=== PATIENT | male | born 1935 | race Caucasian/White ===

== ENCOUNTER 2017-05-23 10:13 | Outpatient (CLI) | payer MEDICARE ==
--- NOTE | 2017-05-23 10:59 | CT ---
NONCONTRAST CT OF THE CERVICAL SPINE: Indication: History of cervical spinal fracture. Comparison: 04-06-17 FINDINGS: The C2 vertebral body fracture is unchanged in appearance when compared to the prior exam. Advanced disc degenerative disease at C3-4 and C4-5 is similar. Diffuse osteopenia is similar. No additional acute fracture or subluxation is evident. Pleural parenchymal scarring involving both lung apices is similar. IMPRESSION: 1. No appreciable change seen involving the inferior endplate fracture of the C2 body when compared to the prior dated 04-06-17. 2. Severe spondylosis and diffuse osteopenia of the cervical spine is similar appearing. Calcificati ons involving the anterior soft tissues of the upper cervical spine is similar appearing. 3. Stable pleural parenchymal scarring involving both lung apices. POS: [facility]
== END 2017-05-23 10:14 | disposition home or self-care (01) ==
LOC: TBSIIMAG 10:13
PROVIDERS: ATTEND Neurological Surgery
DX: S12.9XXA Fracture of neck, unspecified, initial encounter (principal); M47.812 Spondylosis without myelopathy or radiculopathy, cervical region; M85.88 Other specified disorders of bone density and structure, other site; J98.4 Other disorders of lung
CPT/HCPCS: 72125

== ENCOUNTER 2017-06-27 14:04 | Outpatient (CLI) | payer MEDICARE ==
[2017-06-27 16:09] LABS: Anion Gap 9 mmol/L (10-20); BUN (Urea Nitrogen) 21 mg/dL (8.4-25.7); Calc. Creatinine Clearance 0 mL/min (70-130); Calcium 9.3 mg/dL (7.8-10.44); Carbon Dioxide 31 mmol/L (23-31); Chloride 97 mmol/L (98-107); Estimated GFR-MDRD 80
== END 2017-06-27 14:05 | disposition home or self-care (01) ==
LOC: LABBT 14:04
PROVIDERS: ATTEND Neurological Surgery
DX: Z01.818 Encounter for other preprocedural examination (principal); S12.9XXA Fracture of neck, unspecified, initial encounter
CPT/HCPCS: 80048; 93005; 93010

== ENCOUNTER 2017-06-28 05:48 | Day surgery (SDC) | payer MEDICARE ==
[2017-06-27 14:24] VITALS: BMI 22.8
--- NOTE | 2017-06-27 17:04 | HP ---
HISTORY OF PRESENT ILLNESS: Mr. Martin is a pleasant 81-year-old man who presents for evaluation of several months' worth of posterior neck in the occiput stiffness and ache that radiates into the brenda ateral shoulders, right worse than left. The onset after sudden movement when taking up a suitcase, has had both epidural steroid injections and facet blocks with Dr. Mensah all of which helped for a few days, but then his symptoms returned in full. MRI from the [facility] [place] reveals several a reas of significant degenerative disease including focal kyphotic deformity at C3-C4. It was also ev aluated with flexion, extension views and shows a significant amount of motion in the same area. He does not appear to have any fracture at the site on CT scan either. He also has broad based disk pro trusion causing moderate to severe central canal stenosis. The motion that he has was not at C3-C4, that is C2-C3. There is also bilateral neural foraminal narrowing throughout the rest of the cervica l spine that could potentially contribute to the symptoms. He denies any symptoms of bilateral arms. Denies any gait troubles. PAST MEDICAL HISTORY: Hypertension, cholesterol, prostate, thyroid, gastroesophageal reflux, history of cervical cancer, history of thoracic aortic aneurysm, angioplasty with stent in legs. MEDICATIONS: Carvedilol, levothyroxine, pantoprazole, hydrochlorothiazide, atorvastatin, clopidogrel , lisinopril, niacin, vitamin D, aspirin. ALLERGIES: No known drug allergies. PHYSICAL EXAMINATION: The patient is alert and oriented x3. Gait is normal, no ataxia. Upper extre mity motor exam reveals full strength in all muscle groups of the upper extremities. Reflexes are eq ual and present bilaterally at the biceps. ASSESSMENT: Neck pain. PLAN: I discussed the patient's case with Dr. Call. He then met with the patient, reviewed imaging and ultimately advocated for a C2-C3 ACDF. He explained to the patient the risks, benefits, and alt ernatives to the procedure. The patient expressed understanding and would like to move forward with surgery as discussed. I do believe the patient is mentally competent and capable of making medical d ecisions for himself. We will move forward with surgery as planned. Chance Fernandez PA-C, dictating for Rk Call M.D.
[2017-06-28] MEDS ORDERED: Fentanyl 250 MCG/5 ML VIAL ONE (06:08)
[2017-06-28] MEDS ORDERED: Midazolam HCl 2 mg/2 ml Vial ONE (06:08)
[2017-06-28] MEDS ORDERED: CEFAZOLIN/Water 2 GM/20 ML SYRINGE ONE ×2 (06:08→12:44)
[2017-06-28] MEDS ORDERED: Thrombin 5000 UNITS/5 ML VIAL ONE (06:21)
[2017-06-28] MEDS ORDERED: Lidocaine 1% w/Epinephrine 1:200K 30 ML VIAL ONE (06:24)
[2017-06-28] MEDS ORDERED: Meperidine HCl/PF 25 MG/ML VIAL SLOW IVP PRN (08:36)
[2017-06-28] MEDS ORDERED: HYDROmorphone 2 MG/ML VIAL SLOW IVP PRN (08:36)
[2017-06-28] MEDS ORDERED: Morphine Sulfate 2 MG/ML SYRINGE SLOW IVP PRN (08:36)
[2017-06-28] MEDS ORDERED: Promethazine HCl 25 MG/ML VIAL SLOW IVP PRN (08:36)
--- NOTE | 2017-06-28 09:24 | OP ---
DATE OF PROCEDURE: 06/28/2017 SURGEON: Rk Call M.D. COSURGEON: Yaniv Beckford M.D. REAL ESTATE ACCOUNT EXECUTIVE: Chance Fernandez PA-C INDICATION: Pain and prevent neurologic decline. DIAGNOSES: Cervical instability with cervical radiculopathy and cervical neck pain. PROCEDURE: Anterior cervical diskectomy and fusion at C2-C3. ANESTHESIA: General. TECHNIQUE: The patient was brought to the operating room and placed under general anesthesia. He was placed on the table in a supine position. A transverse incision was planned along the upper aspect of the cervical spine. Due to the patient's extensive radiation histories and scarring, Dr. Justin Beckford was responsible for the cervical exposure down to the prevertebral space which will be dictated in a separate operative note. Once we gained access to the C2-C3 area, exophytic bone and anterior osteophytes were identified along the anterior aspect of the spine at C2-C3. These were removed. The C2-C3 disk space was identified. The disk space was removed. The cartilaginous endplates were removed. There was no evidence of concerning endplate fracture grossly. After performing a diskectomy, a 7-mm lordotic PEEK cage was placed within the disk space. Due to the uneven surface and the higher nature in the cervical spine of the operation, I did not place an anterior cervical plate. The wound was then irrigated. Hemostasis was maintained throughout. Lateral films were obtained to confirm appropriate placement of the hardware. The procedure came to an end without complication. Due to the extensive nature of scarring and the prolonged operative time, 22-modifier will be applied to the case. There were no known procedural complications. [facility]
[2017-06-28] MEDS ORDERED: Succinylcholine Chloride 20 MG/ML 10 ml SYRINGE FS ONE (15:34)
[2017-06-28] MEDS ORDERED: Propofol 200 MG/20 ML VIAL ONE (15:34)
[2017-06-28] MEDS ORDERED: ePHEDrine/0.9% NaCl/PF SYRINGE 50 mg/10 ml ONE (15:34)
[2017-06-28] MEDS ORDERED: Lidocaine 1% PF 5 ML VIAL ONE (15:34)
[2017-06-28] MEDS ORDERED: Dexamethasone 20 MG/5 ML VIAL ONE (15:34)
[2017-06-28] MEDS ORDERED: Ondansetron HCl/PF 4 MG/2 ML Vial ONE (15:34)
== END 2017-06-28 14:27 | disposition home or self-care (01) ==
LOC: SDC 05:48
PROVIDERS: ATTEND Neurological Surgery
PROC: 0RG20A0 Fusion of 2 or more Cervical Vertebral Joints with Interbody Fusion Device, Anterior Approach, Anterior Column, Open Approach (ICD-10-PCS; principal; 2017-06-28)
DX: M54.12 Radiculopathy, cervical region (principal); M53.2X2 Spinal instabilities, cervical region; M25.78 Osteophyte, vertebrae; I10 Essential (primary) hypertension; K21.9 Gastro-esophageal reflux disease without esophagitis; E78.5 Hyperlipidemia, unspecified; E03.9 Hypothyroidism, unspecified; Z79.1 Long term (current) use of non-steroidal anti-inflammatories (NSAID); Z79.02 Long term (current) use of antithrombotics/antiplatelets; Z79.82 Long term (current) use of aspirin; Z79.899 Other long term (current) drug therapy; Z96.1 Presence of intraocular lens; Z95.5 Presence of coronary angioplasty implant and graft; Z98.890 Other specified postprocedural states; Z85.89 Personal history of malignant neoplasm of other organs and systems; Z92.3 Personal history of irradiation
CPT/HCPCS: 76001; J1100; J2001; J2250; J2405; J2704; J3010

== ENCOUNTER 2017-07-12 00:34 | Inpatient (IN) | payer MEDICARE ==
[2017-07-12 01:05] LABS: #Basophils 0.1 thou/uL (0.0-0.2); #Eosinphils 0.1 thou/uL (0.0-0.7); #Lymphocytes 1.3 thou/uL (1.20-3.40); #Monocytes 1.1 thou/uL (0.11-0.59); #Neutrophils 12.3 thou/uL (1.40-6.50); %Basophils 0.7 % (0.0-1.0); %Eosinophils 0.4 % (0.0-10.0); %Monocytes 7.2 % (0.0-10.0); Hematocrit 35.7 % (42.0-52.0); Mean Platelet Volume 6.4 fL (7.4-10.4); Red Blood Cell (RBC) Count 4.02 mill/uL (4.70-6.10); White Blood Cell (WBC) Count 14.8 thou/uL (4.8-10.8)
[2017-07-12 01:47] LABS: Lactic Acid - Sepsis 0.8 mmol/L (0.5-2.2)
[2017-07-12 01:51] LABS: ALT (SGPT) 20 U/L (8-55); AST (SGOT) 34 U/L (5-34); Alkaline Phosphatase 84 U/L (40-150); Anion Gap 13 mmol/L (10-20); BUN (Urea Nitrogen) 32 mg/dL (8.4-25.7); Bilirubin, Total 0.7 mg/dL (0.2-1.2); CK (CPK) 263 U/L (30-200); Calc. Creatinine Clearance 0 mL/min (70-130); Calcium 9.2 mg/dL (7.8-10.44); Carbon Dioxide 29 mmol/L (23-31); Chloride 82 mmol/L (98-107); Estimated GFR-MDRD 73; Globulin 2.8 g/dL (2.4-3.5); Lipase 33 U/L (8-78); Protein, Total 6.2 g/dL (5.8-8.1)
[2017-07-12 01:55] LABS: Troponin I 0.116 ng/mL (< 0.028)
[2017-07-12] MEDS ORDERED: Nitroglycerin 2% Ointment 1 INCH/1 GM Packet ONE (04:04)
[2017-07-12] MEDS ORDERED: Ondansetron HCl/PF 4 MG/2 ML Vial ONE (04:04)
[2017-07-12] MEDS ORDERED: Ketorolac Tromethamine 30 MG/ML VIAL ONE (04:04)
[2017-07-12] MEDS ORDERED: Sodium Chloride 0.9% 1,000 ML IV SCH (04:30)
[2017-07-12 05:05] LABS: #Eosinphils 0.1 thou/uL (0.0-0.7); #Lymphocytes 1.3 thou/uL (1.20-3.40); #Neutrophils 9.6 thou/uL (1.40-6.50); %Basophils 0.3 % (0.0-1.0); %Eosinophils 0.5 % (0.0-10.0); %Lymphocytes 11.1 % (21.0-51.0); %Monocytes 8.3 % (0.0-10.0); Hematocrit 33.5 % (42.0-52.0); Mean Platelet Volume 6.4 fL (7.4-10.4); Red Blood Cell (RBC) Count 3.58 mill/uL (4.70-6.10)
[2017-07-12 05:24] LABS: Anion Gap 12 mmol/L (10-20); BUN (Urea Nitrogen) 30 mg/dL (8.4-25.7); Calc. Creatinine Clearance 72 mL/min (70-130); Calcium 9.1 mg/dL (7.8-10.44); Carbon Dioxide 28 mmol/L (23-31); Chloride 82 mmol/L (98-107); Estimated GFR-MDRD 88
--- NOTE | 2017-07-12 05:57 | PDOC.EVN ---
Event Note - Event Note Event Note: [id number] H&P DICTATED 1. Acute bronchitis 2. hyponatremia 3. Chest pain 4. HTN plan: see orders
--- NOTE | 2017-07-12 06:20 | HP ---
CHIEF COMPLAINT: Cough, congestion, dyspnea. HISTORY OF PRESENT ILLNESS: The patient is an 81-year-old male with recent neck surgery approximatel y 2 weeks back. He is currently at home. The patient said for the last 4 days, patient is having dy spnea and dyspnea associated with minimal exertion, complains of cough also, also complains of some c hest congestion. Denies any sputum production. Denies any fever, denies any chills, denies any naus ea, denies any vomiting, complains of some chest tightness, mild in intensity, no aggravating factors , no relieving factors. Denies any radiation. Denies any dizziness. Denies any lightheadedness. PAST MEDICAL HISTORY: Hypertension, hyperlipidemia, GERD. PAST SURGICAL HISTORY: Neck surgery, robotic surgery for throat cancer. The patient did take radiat ion treatment in the past for throat cancer. SOCIAL HISTORY: Denies smoking, denies alcohol, denies any drugs. ALLERGIES: No known drug allergies. REVIEW OF SYSTEMS: CONSTITUTIONAL: Denies any fever, denies any chills. EYES: Denies vision problems. ENT: Negative. NECK: Positive for neck pain from recent surgery. CARDIOVASCULAR: Positive for chest pain. RESPIRATORY: Positive for cough and sputum production. MUSCULOSKELETAL: Denies any joint deformities. CRANIAL NERVE SYSTEM: Denies syncope, denies lightheadedness. PSYCHIATRIC: Denies anxiety. INTEGUMENT: Denies any rash. All other review of systems are reviewed and are negative. PHYSICAL EXAMINATION: CONSTITUTIONAL/VITAL SIGNS: At the time of H&P performed, blood pressure is 136/78, heart rate 82, r espiratory rate 19, pulse ox 100%. GENERAL: This patient appears tired. HEENT: Nares patent. NECK: Positive for surgical site appears clean and intact. CARDIOVASCULAR: S1, S2 present. Positive for murmur, no rubs, no gallops. Regular rhythm. RESPIRATORY SYSTEM: Positive for diminished breath sounds bilaterally. Positive for crackles. No r honchi. GASTROINTESTINAL: Abdomen is soft, nontender, no guarding, no organomegaly, no masses felt. MUSCULOSKELETAL: No edema. NEUROLOGIC: Cranial nerves system, awake. Speech clear. PSYCH: Mood is calm at this time. LABORATORY DATA: At the time of his labs at the time of H&P performed; sodium 117, potassium 4.9, ch loride 82, CO2 28, BUN of 30, creatinine 0.84, troponin 0.090. CK 882, CK-MB 23.3, D-dimer 0.56. Wh ite count 12, hemoglobin 11.4, platelet count is 324. ASSESSMENT AND PLAN: The patient is 81 years old male. 1. Acute bronchitis, rule out pneumonia. CTA chest done at the outside ER, report is pending at thi s time. We will wait for the official report. We go ahead and start the patient on broad spectrum a ntibiotics and monitor the patient closely. 2. Chest pain appears secondary to congestion, but we will monitor the patient closely. Check seria l cardiac enzymes. Plan to consult Cardiology to see the patient 3. Hyponatremia, appears due to syndrome of inappropriate antidiuretic hormone secretion and also hy drochlorothiazide. The patient was started on IV fluids, but sodium started trending down. We will go ahead and hold fluids at this time. We will place the patient on fluid restriction and we will ch génesis urine studies. We will add salt tablets and we will consult Nephrology to see the patient. No n eed for 3% saline at this time. 4. History of hypertension. Monitor blood pressure. Continue blood pressure medications. 5. History of gastroesophageal reflux disease. Continue proton pump inhibitor. 6. History of hyperlipidemia. Continue statin. The case was discussed with the patient.
[2017-07-12] MEDS ORDERED: Acetaminophen 325 MG TAB PO PRN (06:40)
[2017-07-12] MEDS ORDERED: Ondansetron HCl/PF 4 MG/2 ML Vial IVP PRN (06:40)
--- NOTE | 2017-07-12 07:57 | RAD ---
PORTABLE CHEST: History: Dyspnea. Comparison: 08-31-13 FINDINGS: Lung escobar are clear. No infiltrates seen. Heart size is mildly prominent but stable. No evidence of vascular congestion or edema. IMPRESSION: No acute process. POS: [facility]
--- NOTE | 2017-07-12 08:12 | CON ---
DATE OF CONSULTATION: 07/12/2017 This is a 45 minutes critical care time. REASON FOR CONSULTATION: Hyponatremia and ICU care. HISTORY OF PRESENT ILLNESS: This is an 81-year-old male who presented to the hospital last night wit h shortness of breath and cough for the last 2-3 days. He was incidentally found to have a sodium of 119. He has been admitted to the ICU, because of the hyponatremia. He has been taking hydrochlorothiazide and lisinopril for quite some time and has never had any histo ry of hyponatremia prior to this. PAST MEDICAL HISTORY: 1. Hypertension. 2. Coronary artery disease. 3. Hyperlipidemia. 4. Gastroesophageal reflux. 5. Neck cancer. PAST SURGICAL HISTORY: 1. Recent cervical disk operation on the neck. 2. Surgery several years ago for throat cancer. 3. Radiation to the throat many years ago. SOCIAL HISTORY: Quit smoking in 1996, very rarely consumes alcohol. Does not use any illicit drugs. MEDICATIONS PRIOR TO ADMISSION: 1. Atorvastatin 80 mg nightly. 2. Aspirin 81 mg daily. 3. Cholecalciferol 2000 units daily. 4. Carvedilol 6.25 mg b.i.d. 5. Levothyroxine 100 mcg daily. 6. ICAPS 1 tablet daily. 7. Hydrochlorothiazide, unknown dose daily. 8. Plavix 75 mg daily. 9. Naproxen 2 daily. 10. Lisinopril 40 mg daily. 11. Protonix 40 mg daily. ALLERGIES: None. REVIEW OF SYSTEMS: Denies any fever, chills, has had some throat congestion, shortness of breath, co ugh, no hemoptysis, no hematochezia, no hematuria, no dysuria. PHYSICAL EXAMINATION: VITAL SIGNS: Temperature 98.4, pulse 74, blood pressure 175/86. HEENT: Pupils react. Sclerae anicteric. Oropharynx clear. NECK: He has a small surgical scar on the right side of his neck. He has a very raspy voice. LUNGS: Clear to auscultation. Occasional rhonchi. CARDIAC: S1, S2 regular with a 2/6 systolic murmur at the right sternal border. ABDOMEN: Soft, nontender, nondistended. EXTREMITIES: No clubbing, cyanosis, or edema. NEUROLOGIC: Fully intact throughout. LABORATORY DATA AND IMAGING: Sodium 117, potassium 4.9, chloride 82, CO2 28, BUN 30, creatinine 0.8, glucose 82. Troponin 0.9. White blood cell count 12, hematocrit 33.5, platelet count 324. Chest x -ray showed no mass, effusion or infiltrates. CT angio showed some old scarring in the right upper l obe. ASSESSMENT: 1. Hyponatremia - probably secondary to thiazide diuretic in combination with SERGIO inhibitor. 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 2. Pneumonitis versus bronchitis. 3. Other medical problems as listed above including hypothyroidism, coronary artery disease and hype rlipidemia. PLAN: 1. I will go ahead and restart the normal saline and we will monitor his sodium level closely. The goal would be to correct only no more than half the sodium deficit in the first 24 hours. 2. Agree with Zosyn. 3. He is getting a cortisol level and thyroid function studies. 4. Short course of IV steroids and start nebulization treatments.
[2017-07-12] MEDS ORDERED: Conivaptan 20 MG in Premix Bag 1 BAG IVPB SCH (08:15)
[2017-07-12 08:19] LABS: Troponin I 0.103 ng/mL (< 0.028)
--- NOTE | 2017-07-12 08:28 | CT ---
PRELIMINARY REPORT/[facility]/EMERGENCY AFTER HOURS PROCEDURE: EXAM: CT Angiography Chest With Intravenous Contrast CLINICAL HISTORY: 81 years old, male; Dyspnea; chest tightness, difficulty breathing. Worse with laying down and eating . Denies pain. cervical spine surgery 2 weeks ago. HX throat cancer. Able to speak without any diffic ulty. Known aortic aneurysm monitored by Dr Pérez. TECHNIQUE: Axial computed tomographic angiography images of the chest with intravenous contrast using pulmonary embolism protocol. Coronal reformatted images were created and reviewed. CONTRAST: 85 mL of [id number] administered intravenously. COMPARISON: No relevant prior studies available. FINDINGS: Pulmonary arteries: No evidence of pulmonary embolism. Aorta: 4.9 cm aneurysmal dilatation of the ascending thoracic aorta. No aortic dissection. Lungs: No alveolar infiltrate. Areas of scarring in each superior lung apex. No mass. Pleural space: No pleural fluid collection. No pneumothorax. Heart: Left ventricular muscular hypertrophy. No pericardial effusion. Coronary artery and aortic / m itral valve annulus calcification. No evidence of RV dysfunction. Bones/joints: Spinal degenerative changes. No acute fracture. No dislocation. Soft tissues: See above. Lymph nodes: No pathologically enlarged lymph nodes. IMPRESSION: 1. No evidence of pulmonary embolism. 2. No alveolar infiltrate. 3. Areas of scarring in each superior lung apex. 4. 4.9 cm aneurysmal dilatation of the ascending thoracic aorta. No aortic dissection. 5. Left ventricular muscular hypertrophy. Thank you for allowing us to participate in the care of your patient. Dictated and Authenticated by: Dewayne Vaughan MD 07/12/2017 3:48 AM Central Time ([place] & [place]) FINAL REPORT EMERGENCY AFTER HOURS CT ANGIOGRAM THORAX WITH IV CONTRAST AND 3D RECONSTRUCTIONS: Date: 07/12/17 HISTORY: Dyspnea, chest tightness. Difficulty breathing. History of cervical spine surgery 2 weeks ago, as wel l as history of throat cancer. IMPRESSION: 1. Aneurysmal dilatation of the ascending thoracic aorta measuring 4.9 cm in maximal dimension. Athe rosclerotic vascular calcifications are seen in the thoracic aorta, as well as involving the coronary arteries. There is no evidence of an aortic dissection. 2. Upper limits of normal to borderline cardiomegaly with hypertrophy of the left ventricle. 3. No CT evidence of a pulmonary embolus. Rounded parenchymal opacities are seen in each lung apex, but these findings are stable when compared to CT of the neck on 08/05/14 suggesting pleural and pare nchymal scarring. 4. Bibasilar atelectasis. 5. Calcification mitral valve annulus. Findings are in agreement with the preliminary report by Qasim. POS: [facility]
[2017-07-12] MEDS: Nitroglycerin 2% Ointment 1 INCH/1 GM Packet TOP SCH ×2 (08:30→14:30)
[2017-07-12] MEDS ORDERED: Aspirin 325 mg Enteric Coated Tablet PO SCH (09:00)
[2017-07-12] MEDS: Levothyroxine Sodium 100 MCG TAB PO SCH (09:03)
[2017-07-12] MEDS: Carvedilol 6.25 MG TAB PO SCH ×2 (09:04→20:38)
[2017-07-12] MEDS: Famotidine 20 MG TAB PO SCH ×2 (09:04→20:38)
[2017-07-12] MEDS: Aspirin 81 mg Enteric Coated Tablet PO SCH (09:06)
[2017-07-12] MEDS: Sodium Chloride 1 GM TAB PO SCH ×3 (09:26→20:39)
--- NOTE | 2017-07-12 10:58 | CON ---
DATE OF CONSULTATION: 07/12/2017 REASON FOR CONSULTATION: Elevated troponin and shortness of breath. PRIMARY STRIP CATCHER: Dr. Segundo Pérez HISTORY OF PRESENT ILLNESS: Mr. Martin is a very pleasant 81-year-old gentleman who recently underw ent cervical fusion. He states over the last several days, he has had increased shortness of breath and cough. No chest pain or pressure noted. He states he recently underwent a noninvasive stress st udy performed in Dr. Segundo Pérez's office and was told it was negative. He also underwent coronary a ngiography several years ago and also was negative for significant coronary disease. PAST MEDICAL HISTORY: Hyperlipidemia, acid reflux, hypertension, remote tobacco abuse. PAST SURGICAL HISTORY: Surgery for throat cancer in addition to radiation therapy. HOME MEDICATIONS: Include atorvastatin, aspirin, carvedilol, levothyroxine, hydrochlorothiazide, Marquita vix, naproxen, and lisinopril. ALLERGIES: None. REVIEW OF SYSTEMS: Ten point review of systems is reviewed and is as above, negative. PHYSICAL EXAMINATION: VITAL SIGNS: Blood pressure 148/86, pulse 79, temperature afebrile. GENERAL: Patient is a pleasant male who is in no acute distress. The patient appears his stated age. NEUROLOGIC: The patient is alert and oriented times 3 with no focal neurologic deficits. HEENT: Sclerae without icterus. Mouth has moist mucous membranes with normal pallor. NECK: No JVD. Carotid upstroke brisk. No bruits bilaterally. LUNGS: Clear to auscultation with unlabored respirations. BACK: No scoliosis or kyphosis. CARDIAC: Regular rate and rhythm with normal S1 and S2. No S3 or S4 noted. No significant rubs, mur murs, thrills, or gallops noted throughout the precordium. PMI is not displaced. There is no parast ernal heave. ABDOMEN: Soft, nontender, nondistended. No peritoneal signs present. No hepatosplenomegaly. No abn ormal striae. EXTREMITIES: 2+ femoral and 2+ dorsalis pedis pulses. No cyanosis, clubbing, or edema. SKIN: No gross abnormalities. LABORATORY: Hemoglobin 11.4, sodium 119, creatinine 0.84. Peak troponin 0.103. EKG: Normal sinus rhythm with right bundle branch block. IMPRESSION: Elevated troponin. RECOMMENDATIONS: Mr. Tongs troponin is likely related to demand ischemia. He has no current sym ptoms suggesting angina. He was diagnosed with pneumonia versus bronchitis. At this point, I would recommend aggressive medical therapy. I would continue aspirin, carvedilol, atorvastatin. I would a lso continue antibiotic therapy. Echo with Doppler is pending.
--- NOTE | 2017-07-12 11:05 | CON ---
DATE OF CONSULTATION: 07/12/2017 HISTORY OF PRESENT ILLNESS: Mr. Martin is an 81-year-old male admitted for shortness of b reath. Initial chest x-ray shows no acute infiltrates or evidence of CHF. CT scan/angio has been do ne, but the results are pending. We are now being consulted for his acute hyponatremia. REVIEW OF SYSTEMS: No chest pain. Positive for shortness of breath. Denies any fever or chills. P ositive for nonproductive cough. No nausea, no vomiting, no gross hematuria, no dysuria, no urinary frequency, no abdominal pain, no syncopal episode, no chest pain, no joint pains, no new skin rashes. No diplopia, no sore throat. No headache, no hematochezia, no melena, no hematemesis. HOME MEDICATIONS: Norvasc 5 mg daily, atorvastatin 40 mg tab daily, carvedilol 6.25 mg every day, li sinopril 40 mg daily, Protonix 40 mg daily, levothyroxine 100 mcg daily, NSAIDs 1 tab every day. PAST MEDICAL HISTORY: 1. Hypothyroidism. 2. Hypertension. 3. Hyperlipidemia 4. Aortic aneurysm 4.9cm - 07/12/2017. 5. Throat cancer - treated with radiation. PAST SURGICAL HISTORY: 1. Status post cervical neck surgery. 2. Status post hemorrhoidectomy. SOCIAL HISTORY: The patient is and lives in [place], 5 children. Previously smoked in the past, currently rare alcoholic intake, sedentary lifestyle. ALLERGIES: None. TRAUMA: None. IMMUNIZATIONS: Up to date. HOSPITALIZATIONS: Please see past medical history. PHYSICAL EXAMINATION: VITAL SIGNS: Blood pressure is noted at 115/74, heart rate is 76, temperature 98.5, O2 sat 100%. GENERAL: Noted to be awake, supine, comfortable, not in distress. SKIN: Adequate turgor. HEENT: Pinkish conjunctivae, anicteric sclerae. NECK: No neck mass, no carotid bruits, no JVD. CHEST: No deformities. LUNGS: Decreased breath sounds. No wheezing, no crackles. HEART: Normal sinus rhythm. No murmur, no gallops or rubs. ABDOMEN: Globular, soft, nontender, no masses. EXTREMITIES: No edema. CURRENT HOSPITAL MEDICATIONS: Includes heparin 5000 units subcu t.i.d., Solu-Medrol 20 mg IV q.6h., normal saline at 100 mL an hour, sodium chloride 2 grams p.o. t.i.d. LABORATORY: 07/12/2017 - Sodium 117, potassium 4.9, chloride 82, carbon dioxide 28, BUN 30, creatini ne 0.84, glucose 82, calcium 9.1, troponin I 0.9. CK 23.3, BNP 882.9. ASSESSMENT AND PLAN: Acute hyponatremia. We will need to rule out the possibility of syndrome of in appropriate antidiuretic hormone secretion. However, we will examine for possible secondary causes o f hyponatremia. The cortisol level, uric acid, urine serum osmolality, urine sodium and urine creati nine have been ordered. Please note he is already on a thyroid supplementation. My bias is most lik twyla that this is syndrome of inappropriate antidiuretic hormone secretion related to a possible ? of lung problem. Please note we are awaiting for the official results of the CT angio that was done to be ruling out for pulmonary embolism. For the moment, I will start this patient on Conivaptan. The patient will be started on conivaptan. Overall, agree with current management. Continue free water restriction. No indication at the present time for any hypertonic saline. Thank you for the consult. We will continue to follow.
[2017-07-12] MEDS: Sodium Chloride 0.9% 1,000 ML IV SCH ×2 (12:05→18:27)
[2017-07-12] MEDS: Piperacillin/Tazobactam 3.375 GM in Sodium Chloride 0.9% 100 ML IVPB SCH ×2 (12:30→18:15)
--- NOTE | 2017-07-12 15:06 | PDOC.PN ---
- Subjective Encounter Start Date: 07/12/17 Encounter Start Time: 15:04 Subjective: feels better.has problems with swollwoing food and food sticking in throat -: family at bedside.requesting NS sees the pt with recent neck Sx - Objective MAR Reviewed: Yes Vital Signs & Weight: Vital Signs (12 hours) Temp Pulse Resp BP Pulse Ox 07/12/17 12:00 98.5 F 07/12/17 11:48 78 17 100 07/12/17 09:04 146/86 H 07/12/17 07:43 98.5 F 07/12/17 07:33 100 07/12/17 05:00 98.4 F 07/12/17 04:05 98.4 F 72 12 100 Weight Admit Weight 162 lb 7.68 oz Weight 162 lb 7.68 oz Most Recent Monitor Data Heart Rate from ECG 77 NIBP 113/72 NIBP BP-Mean 90 Respiration from ECG 18 SpO2 100 I&O: 07/11/17 07/12/17 07/13/17 06:59 06:59 06:59 Intake Total 285 420 Output Total 350 800 Balance -65 -380 Result Diagrams: 07/13/17 03:57 07/13/17 03:57 Additional Labs: Laboratory Tests 08/31/13 06/27/17 07/12/17 19:05 15:00 01:27 Sodium 133 L 119 L* Lactic Acid Uric Acid B-Natriuretic Peptide 479.3 H Creatine Kinase 263 H CK-MB (CK-2) Troponin I 07/12/17 07/12/17 07/12/17 01:27 01:27 01:27 Sodium Lactic Acid 0.8 Uric Acid B-Natriuretic Peptide 882.9 H Creatine Kinase CK-MB (CK-2) 23.3 H* Troponin I 0.116 H 07/12/17 07/12/17 07/12/17 04:30 04:30 07:30 Sodium 117 L* Lactic Acid Uric Acid B-Natriuretic Peptide Creatine Kinase CK-MB (CK-2) Troponin I 0.090 H 0.103 H 07/12/17 07:30 Sodium Lactic Acid Uric Acid 5.7 B-Natriuretic Peptide Creatine Kinase CK-MB (CK-2) Troponin I Phys Exam - Physical Examination Constitutional: NAD weak looking.sitting up in chair HEENT: PERRLA, moist MMs, sclera anicteric, TM's clear, oral pharynx no lesions , 2+ tonsils neck scar look well healing Neck: no nodes, no JVD, supple, full ROM Respiratory: no wheezing, no rales, no rhonchi, clear to auscultation bilateral Cardiovascular: RRR, no significant murmur Gastrointestinal: soft, non-tender, no distention, positive bowel sounds Musculoskeletal: no edema, pulses present Neurological: non-focal, normal sensation, moves all 4 limbs Psychiatric: normal affect, A&O x 3 Skin: no rash Dx/Plan (1) Hyponatremia Code(s): E87.1 - HYPO-OSMOLALITY AND HYPONATREMIA Status: Acute Comment: improving with NS and salt tabs (2) HTN (hypertension) Code(s): I10 - ESSENTIAL (PRIMARY) HYPERTENSION Status: Acute (3) Acute bronchitis Code(s): J20.9 - ACUTE BRONCHITIS, UNSPECIFIED Status: Acute (4) CAD (coronary artery disease) Code(s): I25.10 - ATHSCL HEART DISEASE OF [place] CORONARY ARTERY W/O ANG PCTRS Status: Acute (5) HLD (hyperlipidemia) Code(s): E78.5 - HYPERLIPIDEMIA, UNSPECIFIED Status: Acute (6) h/o Throat cancer Status: Acute (7) Protein calorie malnutrition Code(s): E46 - UNSPECIFIED PROTEIN-CALORIE MALNUTRITION Status: Chronic Qualifiers: Protein-calorie malnutrition severity: moderate Qualified Code(s): E44.0 - Moderate protein-calorie malnutrition - Plan plan discussed w/ family, DVT proph w/SCDs cont NS,free H2O restriction.S/P Conivaptan.? SIADH.nephrology following -: monitor sodium levels closely.urine studies pending -: High BNP.will check ECHO as some tropinin elevation as well.cardiology recs -: cont home meds of ASA,coreg,statin. -: empiric ABx per PCCM.no PE on CTA * .Will consult [facility]MA Call per family request . * Pt given option of MECHATRONICS ENGINEER consult and artificial saliva.he repeatedly declines. * Nebs,O2 prn.supportive care. * Out of CCU when Ok w PCCM * am labs Review of Systems - Review of Systems Constitutional: Weakness, Malaise. negative: Fever, Chills, Sweats, Other Eyes: negative: Pain, Vision Change, Conjunctivae Inflammation, Eyelid Inflammation, Redness, Other ENT: Throat Swelling Respiratory: Dry. negative: Cough, Shortness of Breath, Hemoptysis, SOB with Excertion, Pleuritic Pain, Sputum, Wheezing Cardiovascular: negative: Chest Pain, Palpitations, Orthopnea, Paroxysmal Noc. Dyspnea, Edema, Light Headedness, Other Gastrointestinal: negative: Nausea, Vomiting, Abdominal Pain, Diarrhea, Constipation, Melena, Hematochezia, Other Genitourinary: negative: Dysuria, Frequency, Incontinence, Hematuria, Retention , Other Musculoskeletal: negative: Neck Pain, Shoulder Pain, Arm Pain, Back Pain, Hand Pain, Leg Pain, Foot Pain, Other Neurological: negative: Weakness, Numbness, Incoordination, Change in Speech, Confusion, Seizures, Other - Medications/Allergies Allergies/Adverse Reactions: Allergies Allergy/AdvReac Type Severity Reaction Status Date / Time No Known Allergies Allergy Verified 07/12/17 04:57 Medications: Current Medications Acetaminophen (Tylenol) 650 mg PO Q4H PRN PRN Reason: Headache/Fever or Pain Albuterol/Ipratropium (Duoneb) 3 ml NEB [id number] [facility] Last Admin: 07/12/17 11:48 Dose: 3 ml Aspirin (Ecotrin) 81 mg PO DAILY [facility] Last Admin: 07/12/17 09:06 Dose: 81 mg Atorvastatin Calcium (Lipitor) 80 mg PO HS [facility] Carvedilol (Coreg) 6.25 mg PO BID [facility] Last Admin: 07/12/17 09:04 Dose: 6.25 mg Famotidine (Pepcid) 20 mg PO BID [facility] Last Admin: 07/12/17 09:04 Dose: 20 mg Heparin Sodium (Porcine) (Heparin) 5,000 units SC TID [facility] Piperacillin Sod/Tazobactam (Sod 3.375 gm/ Sodium Chloride) 100 mls @ 200 mls/ hr IVPB Q6HR [facility] Last Admin: 07/12/17 12:30 Dose: 100 mls Sodium Chloride (Normal Saline 0.9%) 1,000 mls @ 100 mls/hr IV .Q10H [facility] Last Admin: 07/12/17 09:03 Dose: 1,000 mls Levothyroxine Sodium (Synthroid) 100 mcg PO 0600 [facility] Last Admin: 07/12/17 09:03 Dose: 100 mcg Methylprednisolone Sodium Succinate (Solu-Medrol) 20 mg IVP Q6HR [facility] Last Admin: 07/12/17 12:30 Dose: 20 mg Ondansetron HCl (Zofran) 4 mg IVP Q6H PRN PRN Reason: Nausea/Vomiting Sodium Chloride (Sodium Chloride) 2 gm PO TID [facility] Last Admin: 07/12/17 14:47 Dose: 2 gm
[2017-07-12] MEDS: ALPRAZolam 0.25 MG TAB PO PRN (17:07)
[2017-07-12] MEDS: Heparin 5,000 UNITS/ML VIAL SC SCH ×2 (19:15→20:40)
[2017-07-12] MEDS: Melatonin 3 MG TAB PO PRN (20:39)
[2017-07-12] MEDS: Atorvastatin Calcium 40 MG TAB PO SCH (20:39)
[2017-07-12] MEDS ORDERED: Lisinopril 20 MG TAB PO SCH (21:00)
[2017-07-13] MEDS: Piperacillin/Tazobactam 3.375 GM in Sodium Chloride 0.9% 100 ML IVPB SCH ×2 (00:02→05:27)
[2017-07-13] MEDS: Sodium Chloride 0.9% 1,000 ML IV SCH ×2 (00:08→15:09)
[2017-07-13 05:22] LABS: ALT (SGPT) 20 U/L (8-55); AST (SGOT) 41 U/L (5-34); Alkaline Phosphatase 75 U/L (40-150); Anion Gap 13 mmol/L (10-20); BUN (Urea Nitrogen) 22 mg/dL (8.4-25.7); Bilirubin, Total 0.4 mg/dL (0.2-1.2); Calc. Creatinine Clearance 70 mL/min (70-130); Carbon Dioxide 23 mmol/L (23-31); Chloride 93 mmol/L (98-107); Estimated GFR-MDRD 85; Globulin 3.1 g/dL (2.4-3.5); Protein, Total 6.2 g/dL (5.8-8.1)
[2017-07-13] MEDS: Levothyroxine Sodium 100 MCG TAB PO SCH (05:27)
[2017-07-13 05:29] LABS: Band 1 % (5-11); Hematocrit 35.1 % (42.0-52.0); Mean Platelet Volume 7.1 fL (7.4-10.4); Neutrophil 93 % (42-75); Red Blood Cell (RBC) Count 3.66 mill/uL (4.70-6.10); White Blood Cell (WBC) Count 6.1 thou/uL (4.8-10.8)
--- NOTE | 2017-07-13 06:12 | PRG ---
DATE OF SERVICE: 07/12/2017 Mr. Martin is an [id number]-laewlhomn who we know for ACDF 2 weeks ago, who was admitted to the [facility] for what appeared to be respiratory distress and dyspnea. He is admitted to the ICU with our Hospi talist Team and Critical Care Team for hyponatremia and respiratory distress, presumed pneumonia, or bronchitis acutely, understood that over the last 2 weeks of surgery, he has had a profound amount of dysphagia with really any type of oral intake which is not fairly surprising given his previous hist ory of neck procedure and radiation, and this was discussed with the patient at bedside. When I am s eeing him today this afternoon, he actually looks very comfortable and is very pleasant. I also disc ussed this history at that time, the situation overall, I feel like he looks to be very well overall . So far, he is negative for pneumonia and has a diagnosis of presumed acute bronchitis. He is hyponatremic and this is being evaluated and treated. He is also scheduled to have an echocardiogra m performed today as he does have an elevated troponin and BNP. From a neurosurgical standpoint, he looks to be overall very well and where we would expect him to be 2 weeks status post ACDF with his p ast neck history, and this was discussed and reassured with his family at bedside. We will plan to siomara dan to follow during his hospital stay.
--- NOTE | 2017-07-13 08:01 | PRG ---
DATE OF SERVICE: 07/13/2017 SUBJECTIVE: He is feeling much better. His voice is stronger. He has no acute complaints. PHYSICAL EXAMINATION: VITAL SIGNS: Temperature is 97.8, pulse 95, blood pressure 105/81, O2 sat 100%, 24-hour intake 3046, output 2650. HEENT: Unremarkable. NECK: No JVD. LUNGS: Clear to auscultation without wheezing. CARDIAC: S1 and S2 regular. ABDOMEN: Soft. EXTREMITIES: No edema. LABORATORY DATA: Sodium 124, potassium 4.9, BUN 22, creatinine 0.8, glucose 128. White blood cell c ount 6.1, hematocrit 35.1, and platelet count 277. ASSESSMENT: 1. Improved hyponatremia - likely secondary to hydrochlorothiazide using a combination with SERGIO inhi bitor. His cortisol level was somewhat low and at some point he probably needs ACTH stimulation test . He has been on steroids for the last 24 hours, so that would make the test inaccurate at this time . 2. Pneumonitis versus bronchitis. 3. Multiple other medical problems. PLAN: 1. Transfer to telemetry for 24 hours. 2. Discontinue IV antibiotics. 3. Start Omnicef. 4. Discontinue Solu-Medrol and start low dose prednisone for today. 5. Continue thyroid replacement. 6. Probably will need to be started on a different antihypertensive in the future.
[2017-07-13] MEDS: Sodium Chloride 1 GM TAB PO SCH ×3 (08:12→21:06)
[2017-07-13] MEDS: Cefdinir 300 MG CAP PO SCH (08:12)
[2017-07-13] MEDS: Aspirin 81 mg Enteric Coated Tablet PO SCH (08:13)
[2017-07-13] MEDS: predniSONE 20 MG TAB PO SCH (08:13)
[2017-07-13] MEDS: Famotidine 20 MG TAB PO SCH ×2 (08:13→21:05)
[2017-07-13] MEDS: Carvedilol 6.25 MG TAB PO SCH ×2 (08:14→21:05)
[2017-07-13] MEDS: Heparin 5,000 UNITS/ML VIAL SC SCH ×3 (08:15→21:06)
--- NOTE | 2017-07-13 09:00 | PRG ---
DATE OF SERVICE: 07/13/2017 SUBJECTIVE: Mr. Martin is an 81-year-old white male who was seen for acute hyponatremia. Consider ation for syndrome of inappropriate antidiuretic hormone secretion remains. Although he has some med ication that could have aggravated hyponatremia, especially his hydrochlorothiazide. He was given Co nivaptan. This morning his serum sodium is much improved to a most recent value of 124. He is feeli ng better. He denies any chest pain or shortness of breath. Please note that the patient on [address] angio. No overt finding of any pulmonary embolus was noted. He had also finding of 4.9 cm aneurysm. He will be transferred out of the ICU today. He voices no new complaints. He has no chest pain or s hortness of breath. PHYSICAL EXAMINATION: VITAL SIGNS: Blood pressure 115/83, heart rate 90, respiratory rate 14, temperature 98, pulse ox 97% . GENERAL: Noted to be awake, alert, comfortable, not in overt distress. SKIN: Adequate turgor. HEENT: Pinkish conjunctivae, anicteric sclerae. NECK: No neck mass, no carotid bruits, no JVD. CHEST: No deformities. LUNGS: Clear breath sounds. HEART: Normal sinus rhythm with a grade 2/6 systolic murmur, no gallops. ABDOMEN: Globular, soft, nontender, no masses. EXTREMITIES: No edema. LABORATORY: 07/13/2017 - White count 6.1, hemoglobin 11.5, sodium 124, potassium 4.9, chloride 93, c arbon dioxide 23, BUN 22, creatinine 0.86, AST 41, ALT 20, albumin 3.1. Cortisol level is 5.2. Uric acid is 5.7 - normal. Serum osmolality was 256. ASSESSMENT AND PLAN: 1. Hyponatremia. This could be multifactorial. He has had intake of hydrochlorothiazide as an outp atient. His serum sodium is improved with free water restriction and Conivaptan. Continue to observ e. No indication for any hypertonic saline. Continue overall management. 2. Shortness of breath, much improved. No evidence of pulmonary embolism. 3. Valvular heart disease. Continue to observe. Cardiology is following. Consider rechecking basic met in a.m.
[2017-07-13] MEDS ORDERED: Cepastat Lozenges 1 LOZ PO PRN (10:05)
[2017-07-13 12:05] LABS: Osmolality, Urine 316 mOsm/kg (300-900)
[2017-07-13 12:19] LABS: Sodium, Urine 29 mmol/L (Not Available)
[2017-07-13] MEDS: Fluticasone Propionate Nasal Spray 16 gm Bottle NASAL SCH (13:41)
--- NOTE | 2017-07-13 13:43 | PDOC.PN ---
- Subjective Encounter Start Date: 07/13/17 Encounter Start Time: 13:42 Subjective: feels much better.does have post nasal discharge - Objective MAR Reviewed: Yes Vital Signs & Weight: Vital Signs (12 hours) Temp Pulse Resp BP BP Pulse Ox 07/13/17 11:25 97.7 F 92 18 142/84 H 07/13/17 08:14 115/83 07/13/17 08:00 98 F 90 14 97 07/13/17 07:23 90 14 07/13/17 07:00 98 F 07/13/17 03:11 100 07/13/17 03:00 97.8 F Weight Admit Weight 162 lb 7.68 oz Weight 162 lb 7.68 oz Most Recent Monitor Data Heart Rate from ECG 108 NIBP 95/83 NIBP BP-Mean 88 Respiration from ECG 17 SpO2 100 I&O: 07/12/17 07/13/17 07/14/17 06:59 06:59 06:59 Intake Total 285 3046 120 Output Total 350 2650 400 Balance -65 396 -280 Result Diagrams: 07/13/17 03:57 07/13/17 03:57 Additional Labs: Microbiology 07/12/17 15:10 Nasopharyngeal swab Influenza Types A,B Direct EIA - Final 07/12/17 01:45 Venous blood - Left Arm Blood Culture - Preliminary Specimen has been received and culture in progress. No Growth to date. 07/12/17 01:27 Venous blood - Right Arm Blood Culture - Preliminary Specimen has been received and culture in progress. No Growth to date. Laboratory Tests 07/12/17 07/12/17 07/12/17 00:50 01:27 04:30 WBC 14.8 H Sodium 119 L* 117 L* 07/12/17 07/12/17 07/12/17 04:30 09:12 13:06 WBC 12.0 H Sodium 119 L* 120 L 07/12/17 07/12/17 07/13/17 18:30 20:46 03:57 WBC Sodium 121 L 123 L 124 L 07/13/17 03:57 WBC 6.1 Sodium Phys Exam - Physical Examination Constitutional: NAD HEENT: PERRLA, moist MMs, sclera anicteric, oral pharynx no lesions Neck: no nodes, no JVD, supple, full ROM Respiratory: no wheezing, no rales, no rhonchi, clear to auscultation bilateral Cardiovascular: RRR, no significant murmur Gastrointestinal: soft, non-tender, no distention, positive bowel sounds Musculoskeletal: no edema, pulses present Neurological: non-focal, normal sensation, moves all 4 limbs Psychiatric: normal affect, A&O x 3 Skin: no rash Dx/Plan (1) Hyponatremia Code(s): E87.1 - HYPO-OSMOLALITY AND HYPONATREMIA Status: Acute Comment: improving with NS and salt tabs (2) HTN (hypertension) Code(s): I10 - ESSENTIAL (PRIMARY) HYPERTENSION Status: Acute (3) Acute bronchitis Code(s): J20.9 - ACUTE BRONCHITIS, UNSPECIFIED Status: Acute (4) CAD (coronary artery disease) Code(s): I25.10 - ATHSCL HEART DISEASE OF [place] CORONARY ARTERY W/O ANG PCTRS Status: Acute (5) HLD (hyperlipidemia) Code(s): E78.5 - HYPERLIPIDEMIA, UNSPECIFIED Status: Acute (6) h/o Throat cancer Status: Acute (7) Protein calorie malnutrition Code(s): E46 - UNSPECIFIED PROTEIN-CALORIE MALNUTRITION Status: Chronic Qualifiers: Protein-calorie malnutrition severity: moderate Qualified Code(s): E44.0 - Moderate protein-calorie malnutrition - Plan PT/OT, out of bed/ambulate, DVT proph w/SCDs sodium much improved.cont to monitor.nephrology following -: Empiric ABx.changed to PO.PCCM following.DC steroids -: likley home tomorrrow though if sodium around 130 or so -: hemodynamically stable. -: cont home meds as below * .ECHO pending. High BNP even though clinically euvolemic * Review of Systems - Review of Systems Constitutional: negative: Fever, Chills, Sweats, Weakness, Malaise, Other ENT: Throat Swelling Respiratory: negative: Cough, Dry, Shortness of Breath, Hemoptysis, SOB with Excertion, Pleuritic Pain, Sputum, Wheezing Cardiovascular: negative: Chest Pain, Palpitations, Orthopnea, Paroxysmal Noc. Dyspnea, Edema, Light Headedness, Other Gastrointestinal: negative: Nausea, Vomiting, Abdominal Pain, Diarrhea, Constipation, Melena, Hematochezia, Other Genitourinary: negative: Dysuria, Frequency, Incontinence, Hematuria, Retention , Other Musculoskeletal: negative: Neck Pain, Shoulder Pain, Arm Pain, Back Pain, Hand Pain, Leg Pain, Foot Pain, Other Neurological: negative: Weakness, Numbness, Incoordination, Change in Speech, Confusion, Seizures, Other - Medications/Allergies Allergies/Adverse Reactions: Allergies Allergy/AdvReac Type Severity Reaction Status Date / Time No Known Allergies Allergy Verified 07/12/17 04:57 Medications: Current Medications Acetaminophen (Tylenol) 650 mg PO Q4H PRN PRN Reason: Headache/Fever or Pain Albuterol/Ipratropium (Duoneb) 3 ml NEB [id number] [facility] Last Admin: 07/13/17 07:23 Dose: 3 ml Alprazolam (Xanax) 0.25 mg PO BIDPRN PRN PRN Reason: Anxiety Last Admin: 07/12/17 17:07 Dose: 0.25 mg Aspirin (Ecotrin) 81 mg PO DAILY [facility] Last Admin: 07/13/17 08:13 Dose: 81 mg Atorvastatin Calcium (Lipitor) 80 mg PO HS [facility] Last Admin: 07/12/17 20:39 Dose: Not Given Carvedilol (Coreg) 6.25 mg PO BID [facility] Last Admin: 07/13/17 08:14 Dose: 6.25 mg Cefdinir (Omnicef) 600 mg PO DAILY [facility] Last Admin: 07/13/17 08:12 Dose: 600 mg Famotidine (Pepcid) 20 mg PO BID [facility] Last Admin: 07/13/17 08:13 Dose: 20 mg Fluticasone Propionate (Flonase Nasal [place]) 0 gm NASAL BID [facility] Last Admin: 07/13/17 13:41 Dose: 1 spr Heparin Sodium (Porcine) (Heparin) 5,000 units SC TID [facility] Last Admin: 07/13/17 08:15 Dose: 5,000 units Sodium Chloride (Normal Saline 0.9%) 1,000 mls @ 100 mls/hr IV .Q10H [facility] Last Admin: 07/13/17 00:08 Dose: 1,000 mls Levothyroxine Sodium (Synthroid) 100 mcg PO 0600 [facility] Last Admin: 07/13/17 05:27 Dose: 100 mcg Melatonin (Melatonin) 3 mg PO HS PRN PRN Reason: Insomnia Last Admin: 07/12/17 20:39 Dose: 3 mg Ondansetron HCl (Zofran) 4 mg IVP Q6H PRN PRN Reason: Nausea/Vomiting Prednisone (Prednisone) 20 mg PO 0800 [facility] Last Admin: 07/13/17 08:13 Dose: 20 mg Sodium Chloride (Sodium Chloride) 2 gm PO TID [facility] Last Admin: 07/13/17 08:12 Dose: 2 gm Sodium Chloride (Flush - Normal Saline) 10 ml IVF Q12HR [facility] Sodium Chloride (Flush - Normal Saline) 10 ml IVF PRN PRN PRN Reason: Saline Flush Throat Lozenges (Cepastat Lozenges) 1 mart PO PRN PRN PRN Reason: SORE THROAT Last Admin: 07/13/17 13:41 Dose: 1 mart
--- NOTE | 2017-07-13 14:19 | PQF ---
CLINICAL DOCUMENTATION IMPROVEMENT CLARIFICATION FORM: ICD-10 Updated PLEASE DO AN ADDENDUM TO THE PROGRESS NOTE WITH ANY DOCUMENTATION UPDATES OR ADDITIONS AND CARRY THROUGH TO DC SUMMARY. THANK YOU. Date: 07/13/17 ATTN: DR. REYNA Please exercise your independent, professional judgment in responding to the clarification form. Clinical indicators are provided on the bottom of this form for your review Please check appropriate box(s): [ ] Protein Calorie Malnutrition: [ ] Mild [ X ] Moderate [ ] Severe [ ] Other Malnutrition (please specify) __ [ ] Underweight without malnutrition [ ] Cachexia [ ] Other diagnosis [ ] Unable to determine In addition, please specify: Present on Admission (POA): [ ] Yes [ ] No [ ] Unable to determine CLINICAL INDICATORS - SIGNS / SYMPTOMS / LABS BMI 22 DIETARY NOTE 07/12: "THE PT LOST 6-7# IN THE LAST 2 WEEKS" "KCAL AND PROTEIN REQUIREMENTS NOT MET" RISKS: DYSPHAGIA THROAT CANCER RECENT SURGERY TREATMENT: DIETARY CONSULT SPEECH THERAPY CONSULT NUTRITIONAL SUPPLEMENTS RECOMMENDED PER DIETARY NOTE (This form is maintained as a part of the permanent medical record) 2014 [employer]. All Rights Reserved [email or web address] [email or web address] Office: [phone] EDNA
--- NOTE | 2017-07-13 16:46 | PRG ---
DATE OF SUBJECTIVE: 07/13/2017 SUBJECTIVE: Mr. Martin is doing very well. His shortness of breath has improved. PHYSICAL EXAMINATION: VITAL SIGNS: Blood pressure 135/74, pulse 70, temperature 97.1. LUNGS: Clear to auscultation. CARDIAC: Regular rate and rhythm. ABDOMEN: Soft, nontender, nondistended. EXTREMITIES: No edema. Doppler showed normal LVEF with mild amount LVH, diastolic dysfunction present. IMPRESSION: 1. Hyponatremia. 2. Shortness of breath. 3. Coronary artery disease. RECOMMENDATIONS: From a CV standpoint, he is doing well. His shortness of breath has nearly resolve d. He does have a component of diastolic dysfunction with a normal LVEF. From my standpoint, I have no further recommendations. I did state he should follow up with his primary vest front presser. Please reconsult if needed.
[2017-07-13] MEDS: Atorvastatin Calcium 40 MG TAB PO SCH (21:05)
[2017-07-13] MEDS: Melatonin 3 MG TAB PO PRN (21:07)
[2017-07-14] MEDS: ALPRAZolam 0.25 MG TAB PO PRN ×2 (00:26→20:47)
[2017-07-14] MEDS: Sodium Chloride 0.9% 1,000 ML IV SCH ×2 (00:28→15:00)
[2017-07-14] MEDS: Levothyroxine Sodium 100 MCG TAB PO SCH (05:43)
[2017-07-14 05:53] LABS: Anion Gap 10 mmol/L (10-20); BUN (Urea Nitrogen) 21 mg/dL (8.4-25.7); Calc. Creatinine Clearance 79 mL/min (70-130); Carbon Dioxide 26 mmol/L (23-31); Chloride 99 mmol/L (98-107); Estimated GFR-MDRD Greater than 90
--- NOTE | 2017-07-14 08:35 | PRG ---
DATE OF SERVICE: 07/12/2017 I met with Mr. Martin today in the ICU. He was admitted for shortness of breath, hyponatremia, and dysphagia. He is known to me most recently for anterior cervical diskectomy and fusion performed 2 w eeks ago. This morning he looks quite comfortable. He is alert, oriented, and interactive. He and his both state that in the days leading up to this admission he has struggled with dysphonia and shortness of breath. He has been treated quite well by our Pulmonary colleagues and our Medicine Se addi and now is doing much better. From a neurosurgical perspective, I have nothing to add. I have no immediate concerns with respect t o his most recent surgery. His incision remains clean, dry, and intact. He does continue to have so me persistent dysphagia and dysphonia which I believe will persist for quite some time, given the hiren ure of his surgery and the setting of his surgery and the radiated neck. Our plan will be to follow Mr. Martin in the outpatient setting.
[2017-07-14] MEDS: Cefdinir 300 MG CAP PO SCH (08:39)
[2017-07-14] MEDS: Famotidine 20 MG TAB PO SCH ×2 (08:39→20:53)
[2017-07-14] MEDS: predniSONE 20 MG TAB PO SCH (08:39)
[2017-07-14] MEDS: Aspirin 81 mg Enteric Coated Tablet PO SCH (08:39)
[2017-07-14] MEDS: Sodium Chloride 1 GM TAB PO SCH ×3 (08:39→20:52)
[2017-07-14] MEDS: Fluticasone Propionate Nasal Spray 16 gm Bottle NASAL SCH ×2 (08:40→21:00)
[2017-07-14] MEDS: Heparin 5,000 UNITS/ML VIAL SC SCH ×3 (08:40→20:53)
[2017-07-14] MEDS: Carvedilol 6.25 MG TAB PO SCH ×2 (08:40→20:52)
--- NOTE | 2017-07-14 09:14 | PRG ---
DATE OF SERVICE: 07/14/2017 SUBJECTIVE: He is in good spirits, has no complaints. PHYSICAL EXAMINATION: VITAL SIGNS: Temperature 97.6, pulse 66, respiration rate 18, O2 sat 100%, blood pressure 160/91. HEENT: Unremarkable. NECK: Supple. No JVD. CHEST: Clear to auscultation without wheezing. CARDIAC: S1 and S2 regular. ABDOMEN: Soft. EXTREMITIES: No edema. LABORATORY DATA: Sodium 130, potassium 4.7, chloride 99, CO2 26, BUN 21, creatinine 0.7, glucose 98. ASSESSMENT: 1. Resolving hyponatremia - this is probably secondary to thiazide diuretic use. 2. Pneumonia versus bronchitis, which appears to have improved. RECOMMENDATION: He seems fairly close to discharge. I would continue the Omnicef for 7 total days a nd wean the prednisone over a week.
--- NOTE | 2017-07-14 10:15 | PDOC.PN ---
- Subjective Encounter Start Date: 07/14/17 Encounter Start Time: 10:14 Patient seen and examined. No new complaints. No overnight events. still having cough. High risk for aspiration. wheezes present. - Objective MAR Reviewed: Yes Vital Signs & Weight: Vital Signs (12 hours) Temp Pulse Resp BP BP Pulse Ox 07/14/17 08:40 168/81 H 07/14/17 08:37 97.6 F 66 18 168/81 H 99 07/14/17 04:00 97.8 F 79 20 133/73 96 07/14/17 00:39 72 14 98 Weight Admit Weight 162 lb 7.68 oz Weight 162 lb 7.68 oz Most Recent Monitor Data Heart Rate from ECG 108 NIBP 95/83 NIBP BP-Mean 88 Respiration from ECG 17 SpO2 100 I&O: 07/13/17 07/14/17 07/15/17 06:59 06:59 06:59 Intake Total 3046 2687 Output Total 2650 400 Balance 396 2287 Result Diagrams: 07/13/17 03:57 07/14/17 04:50 Phys Exam - Physical Examination Constitutional: NAD HEENT: sclera anicteric Neck: supple Respiratory: wheezing present Cardiovascular: RRR Gastrointestinal: soft Musculoskeletal: no edema Neurological: non-focal Psychiatric: normal affect, A&O x 3 Skin: no rash Dx/Plan (1) Acute bronchitis Code(s): J20.9 - ACUTE BRONCHITIS, UNSPECIFIED Status: Acute (2) CAD (coronary artery disease) Code(s): I25.10 - ATHSCL HEART DISEASE OF [place] CORONARY ARTERY W/O ANG PCTRS Status: Acute (3) HLD (hyperlipidemia) Code(s): E78.5 - HYPERLIPIDEMIA, UNSPECIFIED Status: Acute (4) HTN (hypertension) Code(s): I10 - ESSENTIAL (PRIMARY) HYPERTENSION Status: Acute (5) Hyponatremia Code(s): E87.1 - HYPO-OSMOLALITY AND HYPONATREMIA Status: Acute Comment: improving with NS and salt tabs (6) h/o Throat cancer Status: Acute - Plan cont current plan of care, plan discussed w/ family, continue antibiotics, speech therapy * . f/u with nephrology and PCCM for DC planning. speech eval. AM labs. Possible Dc in AM.
[2017-07-14] MEDS: Melatonin 3 MG TAB PO PRN (20:47)
[2017-07-14] MEDS: Atorvastatin Calcium 40 MG TAB PO SCH (20:52)
[2017-07-15] MEDS: Sodium Chloride 0.9% 1,000 ML IV SCH (00:19)
[2017-07-15] MEDS: Levothyroxine Sodium 100 MCG TAB PO SCH (05:35)
[2017-07-15 06:31] LABS: Anion Gap 6 mmol/L (10-20); BUN (Urea Nitrogen) 19 mg/dL (8.4-25.7); Calc. Creatinine Clearance 81 mL/min (70-130); Calcium 8.6 mg/dL (7.8-10.44); Carbon Dioxide 32 mmol/L (23-31); Chloride 98 mmol/L (98-107); Estimated GFR-MDRD Greater than 90
[2017-07-15 06:35] LABS: Band 1 % (5-11); Mean Platelet Volume 6.1 fL (7.4-10.4); Neutrophil 89 % (42-75); Red Blood Cell (RBC) Count 3.42 mill/uL (4.70-6.10); White Blood Cell (WBC) Count 20.4 thou/uL (4.8-10.8)
[2017-07-15] MEDS: predniSONE 20 MG TAB PO SCH (07:58)
[2017-07-15] MEDS: Fluticasone Propionate Nasal Spray 16 gm Bottle NASAL SCH ×2 (07:58→21:09)
--- NOTE | 2017-07-15 08:48 | PDOC.PN ---
- Subjective Encounter Start Date: 07/15/17 Encounter Start Time: 08:46 Mr. Martin was seen today in follow-up of Hyponatremia, and shortness of breath. He says he was doing fine until about 3:00am this morning. He became more short of breath off and on, and feels congestered. He is receiving a neb treatment right now. - Objective MAR Reviewed: Yes Vital Signs & Weight: Vital Signs (12 hours) Temp Pulse Resp BP BP Pulse Ox 07/15/17 08:40 98 07/15/17 08:37 80 20 07/15/17 08:03 97.7 F 80 20 196/98 H 93 L 07/15/17 05:37 98.8 F 78 18 173/89 H 95 07/14/17 23:27 82 16 94 L 07/14/17 20:52 138/76 Weight Admit Weight 162 lb 7.68 oz Weight 165 lb 1.6 oz Most Recent Monitor Data Heart Rate from ECG 108 NIBP 95/83 NIBP BP-Mean 88 Respiration from ECG 17 SpO2 100 I&O: 07/14/17 07/15/17 07/16/17 06:59 06:59 06:59 Intake Total 2687 1600 Output Total 400 875 Balance 2287 725 Result Diagrams: 07/15/17 05:58 07/15/17 05:58 Phys Exam - Physical Examination HEENT: PERRLA Respiratory: no rales, wheezing present + scattered wheezing Cardiovascular: RRR, no significant murmur, no rub Gastrointestinal: soft, non-tender, positive bowel sounds Musculoskeletal: no edema Dx/Plan (1) Acute bronchitis Code(s): J20.9 - ACUTE BRONCHITIS, UNSPECIFIED Status: Acute (2) CAD (coronary artery disease) Code(s): I25.10 - ATHSCL HEART DISEASE OF [place] CORONARY ARTERY W/O ANG PCTRS Status: Acute (3) HTN (hypertension) Code(s): I10 - ESSENTIAL (PRIMARY) HYPERTENSION Status: Acute (4) Hyponatremia Code(s): E87.1 - HYPO-OSMOLALITY AND HYPONATREMIA Status: Acute Comment: improving with NS and salt tabs (5) h/o Throat cancer Status: Acute - Plan * Acute Bronchitis- will continue the current regimen, he may be having silent aspiration, which resulted in this set back * Hyponatremia- improved * CAD- stable * HTN- blood pressure is elevated- will add Amlodipine, and HCTZ will be discontinued * Home hopefully later today or tomorrow.
[2017-07-15] MEDS: Amlodipine 5 MG TAB PO SCH (09:30)
[2017-07-15] MEDS: Cefdinir 300 MG CAP PO SCH (09:32)
[2017-07-15] MEDS: Aspirin 81 mg Enteric Coated Tablet PO SCH (09:32)
[2017-07-15] MEDS: Carvedilol 6.25 MG TAB PO SCH ×2 (09:32→21:08)
[2017-07-15] MEDS: Sodium Chloride 1 GM TAB PO SCH ×3 (09:32→21:19)
[2017-07-15] MEDS: Famotidine 20 MG TAB PO SCH ×2 (09:32→21:08)
[2017-07-15] MEDS: Heparin 5,000 UNITS/ML VIAL SC SCH ×3 (09:33→21:10)
--- NOTE | 2017-07-15 14:15 | PRG ---
DATE OF SERVICE: 07/15/2017 SUBJECTIVE: This morning, he says he is having difficulty breathing. He is coughing and rattling. PHYSICAL EXAMINATION: VITAL SIGNS: Blood pressure 183/90, pulse 87, sats are 90% on 2 liters, respirations 20, temperature 97. CHEST: Reveals bilateral rhonchi. CARDIAC: Normal S1, S2, no gallops. LABORATORY DATA: White count 20,000, hemoglobin and hematocrit 10 and 30, platelet count 234. Sodiu m 132. IMPRESSION: 1. Hyponatremia, improved. 2. Pneumonia bronchitis. PLAN: Continue prednisone. May consider adding Dulera to his present regime. We will follow.
--- NOTE | 2017-07-15 16:05 | PDOC.EVN ---
Event Note - Event Note Event Note: Mr. Martin is still having episodes of feeling congested, and feels weaker than he did yesterday. On exam he has some rhonchi bilaterally, and possibly rales at the base. Will Heplock his fluids a give a dose of Lasix IV, add Mucinex, and re-assess him in the AM.
[2017-07-15] MEDS ORDERED: Furosemide 20 MG/2 ML VIAL SLOW IVP SCH (16:15)
[2017-07-15] MEDS: guaiFENesin ER 600 MG TAB PO SCH (21:08)
[2017-07-15] MEDS: Atorvastatin Calcium 40 MG TAB PO SCH (21:09)
[2017-07-15] MEDS: ALPRAZolam 0.25 MG TAB PO PRN (21:09)
[2017-07-15] MEDS: Melatonin 3 MG TAB PO PRN (21:09)
[2017-07-15] MEDS: Mometasone/Formoterol 120 PUFF INHALER INH SCH (23:15)
[2017-07-16] MEDS ORDERED: Furosemide 20 MG/2 ML VIAL SLOW IVP SCH (02:00)
[2017-07-16 05:29] LABS: Anion Gap 10 mmol/L (10-20); BUN (Urea Nitrogen) 17 mg/dL (8.4-25.7); Calc. Creatinine Clearance 77 mL/min (70-130); Calcium 9.2 mg/dL (7.8-10.44); Carbon Dioxide 34 mmol/L (23-31); Chloride 94 mmol/L (98-107); Estimated GFR-MDRD Greater than 90
[2017-07-16] MEDS: Levothyroxine Sodium 100 MCG TAB PO SCH (05:32)
[2017-07-16 06:21] LABS: Hematocrit 34.2 % (42.0-52.0); Macrocytosis SLIGHT = 6-15 cells (100X) (0-5/hpf); Mean Platelet Volume 6.6 fL (7.4-10.4); Neutrophil 82 % (42-75); Reactive Lymphocytes 2 % (0-10); Red Blood Cell (RBC) Count 3.54 mill/uL (4.70-6.10); White Blood Cell (WBC) Count 17.7 thou/uL (4.8-10.8)
[2017-07-16] MEDS: Mometasone/Formoterol 120 PUFF INHALER INH SCH ×2 (07:38→18:26)
--- NOTE | 2017-07-16 08:23 | RAD ---
PORTABLE CHEST: HISTORY: Chest congestion. FINDINGS: Heart mildly prominent. Vascular engorgement. NO confluent infiltrate or significant effusion. Int erstitial prominence may be chronic. IMPRESSION: There are chronic-appearing lung changes. No evidence of acute infiltrate. POS: [facility]
[2017-07-16] MEDS: Cefdinir 300 MG CAP PO SCH (08:46)
[2017-07-16] MEDS: Carvedilol 6.25 MG TAB PO SCH ×2 (08:47→20:39)
[2017-07-16] MEDS: guaiFENesin ER 600 MG TAB PO SCH ×2 (08:47→20:39)
[2017-07-16] MEDS: predniSONE 20 MG TAB PO SCH (08:47)
[2017-07-16] MEDS: Famotidine 20 MG TAB PO SCH ×2 (08:48→20:39)
[2017-07-16] MEDS: Aspirin 81 mg Enteric Coated Tablet PO SCH (08:48)
[2017-07-16] MEDS: Amlodipine 5 MG TAB PO SCH (08:48)
[2017-07-16] MEDS: Fluticasone Propionate Nasal Spray 16 gm Bottle NASAL SCH ×2 (08:48→20:35)
[2017-07-16] MEDS: Heparin 5,000 UNITS/ML VIAL SC SCH ×3 (08:49→20:35)
[2017-07-16] MEDS: Sodium Chloride 1 GM TAB PO SCH ×3 (11:42→20:40)
--- NOTE | 2017-07-16 13:30 | PRG ---
DATE OF SERVICE: 07/16/2017 SUBJECTIVE: Jean-Claude Martin was having difficulty breathing last night and choking. OBJECTIVE: VITAL SIGNS: Blood pressure 158/84, sats are 93% on 2 liters and respirations 18. CARDIAC: I see no wheezes or crackles. Normal S1 and S2. LABORATORY DATA: White count 17,000, hemoglobin and hematocrit 11 and 34, platelet count 323. Elect rolytes are normal. IMAGING DATA: His x-ray from last night shows no new infiltrates. IMPRESSION: Bronchitis, retained secretions. Dysphagia. Hypernatremia, improved. PLAN: The patient is seen today. Otherwise, continue neb treatments, Mucinex and empiric antibiotic s.
[2017-07-16] MEDS ORDERED: hydrALAZINE 20 MG/ML VIAL SLOW IVP PRN (14:23)
--- NOTE | 2017-07-16 14:35 | PDOC.PN ---
- Subjective Encounter Start Date: 07/16/17 Encounter Start Time: 14:33 Mr. Martin was seen today in follow-up. He say he had another rough night with his breathing. He was short of breath and congested about 1:00AM in the morning. He says the symptoms come in waves, and right at this moment he feels ok. - Objective MAR Reviewed: Yes Vital Signs & Weight: Vital Signs (12 hours) Temp Pulse Resp BP BP Pulse Ox 07/16/17 14:17 86 16 92 L 07/16/17 08:48 83 158/84 H 07/16/17 08:47 158/84 H 07/16/17 08:00 98.4 F 83 16 93 L 07/16/17 07:35 83 16 93 L 07/16/17 07:33 98.4 F 83 18 158/84 H 92 L 07/16/17 04:00 97.2 F L 84 22 H 163/83 H 93 L Weight Admit Weight 162 lb 7.68 oz Weight 165 lb 1.6 oz Most Recent Monitor Data Heart Rate from ECG 108 NIBP 95/83 NIBP BP-Mean 88 Respiration from ECG 17 SpO2 100 I&O: 07/15/17 07/16/17 07/17/17 06:59 06:59 06:59 Intake Total 1600 2197 180 Output Total 875 3685 Balance 725 -1488 180 Result Diagrams: 07/16/17 04:50 07/16/17 04:50 Phys Exam - Physical Examination HEENT: PERRLA Respiratory: no rales + rhonchi bilaterally Cardiovascular: RRR, no significant murmur Gastrointestinal: soft, non-tender, positive bowel sounds Musculoskeletal: no edema Dx/Plan (1) Acute bronchitis Code(s): J20.9 - ACUTE BRONCHITIS, UNSPECIFIED Status: Acute (2) CAD (coronary artery disease) Code(s): I25.10 - ATHSCL HEART DISEASE OF [place] CORONARY ARTERY W/O ANG PCTRS Status: Acute (3) HTN (hypertension) Code(s): I10 - ESSENTIAL (PRIMARY) HYPERTENSION Status: Acute (4) Hyponatremia Code(s): E87.1 - HYPO-OSMOLALITY AND HYPONATREMIA Status: Acute Comment: improving with NS and salt tabs (5) h/o Throat cancer Status: Acute - Plan * Acute respiratory distress- suspect he is having episodes of aspiration- he did not do well with the speech therapy session today, and a MBS has been recommended * Will leave him NPO, except ice chips, and sips of water * HTN- will add Hydralazine PRN * Will change antibiotic to Zosyn * CAD- stable * Hyponatremia- improved.
[2017-07-16] MEDS: D5 0.9% NS w/ 20 mEq KCl 1,000 ML IV SCH (15:42)
[2017-07-16] MEDS ORDERED: Lorazepam 2 MG/ML VIAL SLOW IVP PRN (16:33)
[2017-07-16] MEDS: Piperacillin/Tazobactam 3.375 GM in Sodium Chloride 0.9% 100 ML IVPB SCH (17:48)
[2017-07-16] MEDS: Atorvastatin Calcium 40 MG TAB PO SCH (20:39)
[2017-07-17] MEDS: Piperacillin/Tazobactam 3.375 GM in Sodium Chloride 0.9% 100 ML IVPB SCH ×4 (00:16→18:08)
[2017-07-17 04:38] LABS: Anion Gap 11 mmol/L (10-20); BUN (Urea Nitrogen) 17 mg/dL (8.4-25.7); Calc. Creatinine Clearance 76 mL/min (70-130); Carbon Dioxide 35 mmol/L (23-31); Chloride 94 mmol/L (98-107); Estimated GFR-MDRD Greater than 90
[2017-07-17] MEDS: Levothyroxine Sodium 100 MCG TAB PO SCH (05:30)
[2017-07-17] MEDS: Mometasone/Formoterol 120 PUFF INHALER INH SCH ×2 (07:28→19:27)
--- NOTE | 2017-07-17 08:39 | PRG ---
DATE OF SERVICE: 07/17/2017 SUBJECTIVE: The patient is coughing any time if he tries to swallow something. He has been made n.p .o. and scheduled to have a swallowing test later today. PHYSICAL EXAMINATION: VITAL SIGNS: His temperature is 96.8, pulse 74, respiration rate 16, O2 sat 97%, blood pressure 115/ 87. HEENT: Unremarkable. NECK: No JVD. CHEST: Clear to auscultation without wheezing. CARDIAC: S1 and S2 regular. ABDOMEN: Soft. EXTREMITIES: No edema. ASSESSMENT: 1. Likely he has some degree of chronic aspiration. 2. Resolved hyponatremia. 3. Status post neck surgery. 4. Status post head and neck radiation. PLAN: Speech therapy tests later today. In the meantime, he is continuing antibiotics, although I d oubt there is any type of infection present.
[2017-07-17] MEDS: guaiFENesin ER 600 MG TAB PO SCH ×2 (10:50→21:14)
[2017-07-17] MEDS: Aspirin 81 mg Enteric Coated Tablet PO SCH (10:50)
[2017-07-17] MEDS: Cefdinir 300 MG CAP PO SCH (10:50)
[2017-07-17] MEDS: Carvedilol 6.25 MG TAB PO SCH ×2 (10:50→21:14)
[2017-07-17] MEDS: Famotidine 20 MG TAB PO SCH ×2 (10:50→21:14)
[2017-07-17] MEDS: Amlodipine 5 MG TAB PO SCH (10:50)
[2017-07-17] MEDS: Sodium Chloride 1 GM TAB PO SCH ×3 (10:51→21:15)
[2017-07-17] MEDS: Heparin 5,000 UNITS/ML VIAL SC SCH ×3 (10:57→21:15)
[2017-07-17] MEDS: Fluticasone Propionate Nasal Spray 16 gm Bottle NASAL SCH ×2 (11:01→22:11)
[2017-07-17] MEDS: predniSONE 20 MG TAB PO SCH (11:02)
[2017-07-17] MEDS: D5 0.9% NS w/ 20 mEq KCl 1,000 ML IV SCH ×2 (11:36→18:09)
--- NOTE | 2017-07-17 12:16 | PDOC.PN ---
- Subjective Encounter Start Date: 07/17/17 Encounter Start Time: 12:15 Mr. Martin was seen today in follow-up for severe dysphagia. He says he rested better last night. He denies feeling short of breath. - Objective MAR Reviewed: Yes Vital Signs & Weight: Vital Signs (12 hours) Temp Pulse Resp BP BP Pulse Ox 07/17/17 10:50 74 106/69 07/17/17 08:00 96.8 F L 74 16 97 07/17/17 07:34 96.8 F L 74 16 155/87 H 97 07/17/17 07:25 84 14 90 L 07/17/17 02:29 100 Weight Admit Weight 162 lb 7.68 oz Weight 165 lb 1.6 oz Most Recent Monitor Data Heart Rate from ECG 108 NIBP 95/83 NIBP BP-Mean 88 Respiration from ECG 17 SpO2 100 I&O: 07/16/17 07/17/17 07/18/17 06:59 06:59 06:59 Intake Total 2197 960 Output Total 3685 400 Balance -1488 560 Result Diagrams: 07/16/17 04:50 07/17/17 03:33 Phys Exam - Physical Examination HEENT: PERRLA Respiratory: no wheezing, no rales + rhonchi Cardiovascular: RRR, no significant murmur, no rub Gastrointestinal: soft, non-tender, positive bowel sounds Musculoskeletal: no edema Dx/Plan (1) Acute bronchitis Code(s): J20.9 - ACUTE BRONCHITIS, UNSPECIFIED Status: Acute (2) CAD (coronary artery disease) Code(s): I25.10 - ATHSCL HEART DISEASE OF [place] CORONARY ARTERY W/O ANG PCTRS Status: Acute (3) HTN (hypertension) Code(s): I10 - ESSENTIAL (PRIMARY) HYPERTENSION Status: Acute (4) Hyponatremia Code(s): E87.1 - HYPO-OSMOLALITY AND HYPONATREMIA Status: Acute Comment: improving with NS and salt tabs (5) h/o Throat cancer Status: Acute - Plan * Dysphagia- discussed the results with Speech Therapy. He did not do well on the MBS. This was discussed in detail with the patient , and family today at the bedside. He would like to pursue PEG tube placement. Will consult GI * Hyponatremia- resolved * HTN- continue IV PRN medications in the interim * .
--- NOTE | 2017-07-17 13:51 | RAD ---
MODIFIED BARIUM SWALLOW WITH SPEECH THERAPIST: DATE: 07/17/17. HISTORY: An 81-year-old male with dysphagia due to previous radiation therapy to the neck for head and neck ca ncer. Pneumonitis due to inhalation of fluid and vomiting, J69.0. Dysphagia, oropharyngeal phase, R 13.12. Feeding difficulties R63.3. FINDINGS: There is severe focal kyphosis at C2-3. There are multiple moderate-sized calcification in the thick ened soft tissues anterior to the upper cervical spine. Thin liquid was administered first by spoon, then by cup sip. Puree was administered. No other consistencies were given. There is rapid, thierry ture free spillage into the vallecula and piriform sinuses, and immediate penetration into the vocal cord level, and subsequently aspiration, with the thin liquids. Penetration and aspiration is also s een with puree. There is poor laryngeal elevation, poor epiglottic inversion, and poor hyoid protrac tion. This decreased mobility may represent sequelae of prior radiation therapy. IMPRESSION: 1. Severe pharyngeal phase of dysphagia, including penetration and aspiration. 2. Severe chronic changes of the upper cervical spine. POS: [facility]
[2017-07-17] MEDS: Atorvastatin Calcium 40 MG TAB PO SCH (21:14)
--- NOTE | 2017-07-17 22:16 | CON ---
DATE OF CONSULTATION: 07/17/2017 CHIEF COMPLAINT: Trouble swallowing. HISTORY OF PRESENT ILLNESS: Mr. Martin is an 81-year-old man who reports a 24-pound weight loss ove r the last 6 months to a year. These had some coughing after eating over the last several months. A round 3 weeks ago he underwent anterior cervical diskectomy and fusion. He has had some increase in his dysphagia since then, has lost around 10 pounds over that time period. He was admitted on 2016 with cough and shortness of breath. He was felt to have evidence of aspiration. He underwent m odified barium swallow which shows he was not safe for any consistency oral intake. GI was consulted for PEG tube placement. He has no abdominal pain, no nausea, vomiting, no diarrhea, constipation or blood in the stool. 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 His hypertension, hyperlipidemia, gastroesophageal reflux disease. FAMILY HISTORY: Negative for GI malignancy. SOCIAL HISTORY: No current alcohol, tobacco, or drugs. ALLERGIES: No known drug allergies. CURRENT MEDICATIONS: Include amlodipine, aspirin, atorvastatin, carvedilol, Cefdinir, famotidine, he mason subcu, levothyroxine, Dulera inhaler, Zosyn, prednisone 20 mg daily. REVIEW OF SYSTEMS: Negative x10 systems reviewed except as stated in the history of present illness. PHYSICAL EXAMINATION: VITAL SIGNS: Temperature 96.8, blood pressure 106/69, pulse 74. GENERAL: He is in no acute distress, alert and oriented x3. HEENT: Eyes have no scleral icterus. Oropharynx is clear, without lesions. His neck is woody to pa lpation. LUNGS: Clear to auscultation bilaterally. HEART: Regular rate and rhythm with a 3/6 systolic murmur at right upper sternal border in the apex. ABDOMEN: Soft, nontender, nondistended, bowel sounds are present, no hepatomegaly. EXTREMITIES: No lower extremity edema. LABORATORY: White blood cell count 17.7, hemoglobin 11.3, platelets 323, creatinine 0.81. IMPRESSION: 1. Dysphagia with history of neck radiation and surgery for head and neck cancer. More recently, he has had dysphagia for the last several months, but this has worsened over the last 3 weeks since ant erior cervical diskectomy and fusion. Modified barium swallow shows a high risk for aspiration with all consistencies. RECOMMENDATIONS: 1. He is on broad spectrum antibiotics now. 2. Plan EGD with percutaneous endoscopic gastrostomy tube placement tomorrow.
[2017-07-18] MEDS: Piperacillin/Tazobactam 3.375 GM in Sodium Chloride 0.9% 100 ML IVPB SCH ×4 (00:39→17:59)
[2017-07-18] MEDS: Levothyroxine Sodium 100 MCG TAB PO SCH (06:11)
[2017-07-18] MEDS: Mometasone/Formoterol 120 PUFF INHALER INH SCH ×2 (06:49→20:08)
[2017-07-18] MEDS ORDERED: Midazolam HCl 2 mg/2 ml Vial ONE (07:22)
[2017-07-18] MEDS ORDERED: Benzocaine 20% Spray 60 ML CAN ONE (08:41)
[2017-07-18] MEDS ORDERED: Promethazine HCl 25 MG/ML VIAL SLOW IVP PRN (09:24)
[2017-07-18] MEDS ORDERED: Morphine Sulfate 2 MG/ML SYRINGE SLOW IVP PRN (09:24)
[2017-07-18] MEDS ORDERED: Ondansetron HCl/PF 4 MG/2 ML Vial IVP PRN (09:24)
[2017-07-18] MEDS: predniSONE 20 MG TAB PO SCH (10:06)
[2017-07-18] MEDS: Carvedilol 6.25 MG TAB PO SCH ×2 (10:06→21:14)
[2017-07-18] MEDS: Aspirin 81 mg Enteric Coated Tablet PO SCH (10:06)
[2017-07-18] MEDS: Amlodipine 5 MG TAB PO SCH (10:06)
[2017-07-18] MEDS: Cefdinir 300 MG CAP PO SCH (10:07)
[2017-07-18] MEDS: Famotidine 20 MG TAB PO SCH ×2 (10:07→21:14)
[2017-07-18] MEDS: guaiFENesin ER 600 MG TAB PO SCH ×2 (10:07→21:15)
[2017-07-18] MEDS: Fluticasone Propionate Nasal Spray 16 gm Bottle NASAL SCH ×2 (10:07→21:20)
[2017-07-18] MEDS: Heparin 5,000 UNITS/ML VIAL SC SCH ×3 (10:08→21:15)
[2017-07-18] MEDS: Sodium Chloride 1 GM TAB PO SCH ×3 (10:08→21:18)
--- NOTE | 2017-07-18 10:48 | OP ---
DATE OF PROCEDURE: 07/18/2017 SURGEON: Duke Ireland M.D. DESCRIPTION OF PROCEDURE: Esophagogastroduodenoscopy with percutaneous gastrostomy tube placement. PROCEDURE: After the risks and benefits were discussed with the patient and his family including possible risks of infection, bleeding, reaction to anesthesia, and pain, informed consent was obtained. After the patient's consent was obtained he was then transferred to the endoscopy suite where TIVA anesthesia was administered. While in the supine position, the endoscope was then passed through the mouth, esophagus, and into the stomach and small intestine with visualization of the mucosa achieved upon withdrawal. During the procedure, he did experience acute oxygen desaturation with the administration of anesthesia with his oxygen saturation levels reaching approximately 15% at their lowest, but he did respond quickly with the placement of a 34 Stateless nasal trumpet with return of oxygen saturations to normal levels. After this occurred, the procedure was then completed successfully without further issues. FINDINGS: Hypopharynx; a minimal amount of retained food was seen in the posterior hypopharynx that did limit visualization somewhat, but was able to be suctioned out effectively. Esophagus; a minimal amount of residual food was also seen in the proximal, mid and distal esophagus limiting visualization somewhat, but was able to be irrigated and suctioned to achieve adequate mucosal visualization. Once cleared , there were no abnormalities seen in the proximal, mid, and distal esophagus. Stomach; nodular appearing mucosa was seen throughout the entire stomach in the cardia, body, fundus and proximal antrum without overt polyp formation or mass lesions. The antrum and incisura appeared normal with no erosions, ulcerations , or mass lesions. No abnormalities were seen on gastric retroflexion. Duodenum; normal appearing mucosa was seen in both the duodenal bulb and second portion of the duodenum with no evidence of ulcerations, erosions or mass lesions. After adequate inspection of the mucosa of the upper GI tract was performed, using proper technique the percutaneous gastrostomy tube was then placed using 1 :1 compression and transillumination. The site was ascertained adequately with both of these maneuvers, at which point the site was cleaned with chlorhexidine. After the site was given an adequate amount of time to dry, a finder needle was then loaded with lidocaine and instilled underneath the surface of the skin in a weal formation. After the lidocaine was instilled underneath the skin, the needle was then oriented perpendicular to the skin with instillation of lidocaine upon advancement of the needle as well as back pressure performed during this maneuver. The needle was then advanced into the stomach with the remainder of the lidocaine instilled along the tract. Then, using a small scalpel a 1 cm vertical incision was made in the skin at which point an aspiration needle was then advanced along the anesthetized tract into the stomach adequately. Once the needle was removed from the catheter, a guidewire was then advanced through the catheter and using a snare retrieved by the endoscope and pulled out through the mouth. The percutaneous gastrostomy tube was then affixed to the guidewire, and using a push technique, was advanced through the mouth and out through the anterior wall of the stomach and through the skin. Minimal bleeding was noted with the advancement of the PEG tube. An external bumper and external adapter were then placed in preparation for initiation of tube feedings. All equipment was then removed and the procedure was terminated. IMPRESSION: 1. Successful placement of a percutaneous gastrostomy tube ([employer] 20 Stateless). 2. Nodular mucosa seen in the gastric body and fundus consistent with chronic PPI use. RECOMMENDATIONS: 1. Follow up with the primary inpatient team. 2. Can institute use of the feeding tube now for medications only. Would wait approximately 4 hours prior to the instillation of tube feeds. 3. We will consult the dietitian for recommendations regarding adequate tube feeding to maintain nutrition. 4. Would conform to standard PEG tube care (rotate the PEG tube approximately 720 degrees daily, can clean the wound with running soap and water, would avoid baths or swimming for the next 6 weeks, would refrain from placing any dressings or materials between the external bumper and the skin, would instill 60 mL of normal saline prior to and after all tube feeds). 5. If the PEG tube is removed prior to 8 weeks, this is considered a surgical emergency and would require a stat CT and/or surgical consultation for possible peritonitis. Addendum: Upon transferring the patient back to the Medical floor, increased bleeding from the PEG site was noticed by nursing staff. The site was examined with minimal continued bleeding noted from the inferior aspect of the incision made to accomodate the PEG tube. Using silver nitrate sticks (two), the bleeding was stopped with chemical cautery. No further bleeding was noted from the site afterward. [facility]
[2017-07-18] MEDS ORDERED: Propofol 200 MG/20 ML VIAL ONE (11:49)
[2017-07-18] MEDS ORDERED: Esmolol 100 MG/10 ML VIAL ONE (11:49)
[2017-07-18 15:06] VITALS: BMI 22.4
--- NOTE | 2017-07-18 16:29 | PDOC.PN ---
- Subjective Encounter Start Date: 07/18/17 Encounter Start Time: 16:27 Mr. Martin was seen today in follow-up of Dysphagia. He is back from placement of the PEG tube. - Objective MAR Reviewed: Yes Vital Signs & Weight: Vital Signs (12 hours) Temp Pulse Resp BP BP Pulse Ox 07/18/17 12:23 85 182/92 H 07/18/17 11:52 85 16 96 07/18/17 10:15 98.3 F 86 24 H 162/89 H 95 07/18/17 10:06 96 106/69 07/18/17 06:49 96 16 96 07/18/17 06:45 86 16 96 07/18/17 04:28 98.3 F 85 20 166/82 H 95 Weight Admit Weight 162 lb 7.68 oz Weight 165 lb 1.6 oz Most Recent Monitor Data Heart Rate from ECG 108 NIBP 95/83 NIBP BP-Mean 88 Respiration from ECG 17 SpO2 100 I&O: 07/17/17 07/18/17 07/19/17 06:59 06:59 06:59 Intake Total 960 1300 Output Total 400 Balance 560 1300 Result Diagrams: 07/16/17 04:50 07/17/17 03:33 Phys Exam - Physical Examination HEENT: PERRLA + occasional rhonchi Cardiovascular: RRR, no significant murmur Gastrointestinal: soft, non-tender, positive bowel sounds Musculoskeletal: no edema Dx/Plan (1) Acute bronchitis Code(s): J20.9 - ACUTE BRONCHITIS, UNSPECIFIED Status: Acute (2) CAD (coronary artery disease) Code(s): I25.10 - ATHSCL HEART DISEASE OF [place] CORONARY ARTERY W/O ANG PCTRS Status: Acute (3) HTN (hypertension) Code(s): I10 - ESSENTIAL (PRIMARY) HYPERTENSION Status: Acute (4) Hyponatremia Code(s): E87.1 - HYPO-OSMOLALITY AND HYPONATREMIA Status: Acute Comment: improving with NS and salt tabs (5) h/o Throat cancer Status: Acute - Plan * Dysphagia- which is multifactoral- PEG tube has been placed * HTN- can re-start his blood pressure medications via the PEG tube * Hyponatremia- corrected * Will re-check BMP and CBC in AM.
[2017-07-18] MEDS ORDERED: diphenhydrAMINE 25 MG CAP PO PRN (16:33)
[2017-07-18] MEDS: Atorvastatin Calcium 40 MG TAB PO SCH (21:13)
[2017-07-18] MEDS: ALPRAZolam 0.25 MG TAB PO PRN (21:13)
[2017-07-19] MEDS: Piperacillin/Tazobactam 3.375 GM in Sodium Chloride 0.9% 100 ML IVPB SCH ×5 (00:17→23:29)
[2017-07-19] MEDS: D5 0.9% NS w/ 20 mEq KCl 1,000 ML IV SCH ×2 (00:17→21:37)
[2017-07-19] MEDS ORDERED: Acetaminophen 325 MG TAB PER TUBE PRN (01:45)
[2017-07-19] MEDS ORDERED: diphenhydrAMINE 25 MG CAP PER TUBE PRN (01:45)
[2017-07-19] MEDS ORDERED: ALPRAZolam 0.25 MG TAB PER TUBE PRN (01:45)
[2017-07-19] MEDS ORDERED: Melatonin 3 MG TAB PER TUBE PRN (01:45)
[2017-07-19] MEDS: Levothyroxine Sodium 100 MCG TAB PER TUBE SCH (05:37)
[2017-07-19] MEDS: Mometasone/Formoterol 120 PUFF INHALER INH SCH ×2 (07:19→18:54)
[2017-07-19] MEDS: predniSONE 20 MG TAB PER TUBE SCH (08:33)
[2017-07-19] MEDS: Carvedilol 6.25 MG TAB PER TUBE SCH ×2 (08:33→21:09)
[2017-07-19] MEDS: Cefdinir 300 MG CAP PER TUBE SCH (08:33)
[2017-07-19] MEDS: Famotidine 20 MG TAB PER TUBE SCH ×2 (08:34→21:07)
[2017-07-19] MEDS: guaiFENesin ER 600 MG TAB PER TUBE SCH ×2 (08:35→21:08)
[2017-07-19] MEDS: Amlodipine 5 MG TAB PER TUBE SCH (08:35)
[2017-07-19] MEDS: Fluticasone Propionate Nasal Spray 16 gm Bottle NASAL SCH ×2 (08:51→21:10)
[2017-07-19] MEDS: Heparin 5,000 UNITS/ML VIAL SC SCH ×3 (08:52→21:10)
[2017-07-19] MEDS: Sodium Chloride 1 GM TAB PER TUBE SCH ×3 (11:52→21:06)
--- NOTE | 2017-07-19 14:52 | PDOC.PN ---
- Subjective Encounter Start Date: 07/19/17 Encounter Start Time: 14:44 Mr. Martin was seen today in follow-up of dysphagia. He says he feels like there is something in his nose, or throat, like a flap that is just hanging. He also got up to walk, and says he got very winded. His oxygen saturation dropped to around 88, and felt some chest tightness and he was placed back on oxygen. He feels better now. - Objective MAR Reviewed: Yes Vital Signs & Weight: Vital Signs (12 hours) Temp Pulse Resp BP BP Pulse Ox 07/19/17 11:54 81 16 92 L 07/19/17 08:35 88 167/89 H 07/19/17 08:33 167/89 H 07/19/17 08:00 98.2 F 81 16 92 L 07/19/17 07:46 98.2 F 88 20 167/89 H 82 L 07/19/17 07:19 88 18 92 L 07/19/17 07:16 88 18 92 L 07/19/17 04:33 100 Weight Admit Weight 162 lb 7.68 oz Weight 165 lb 1.6 oz Most Recent Monitor Data Heart Rate from ECG 108 NIBP 95/83 NIBP BP-Mean 88 Respiration from ECG 17 SpO2 100 I&O: 07/18/17 07/19/17 07/20/17 06:59 06:59 06:59 Intake Total 1300 1870 65 Balance 1300 1870 65 Result Diagrams: 07/16/17 04:50 07/17/17 03:33 Phys Exam - Physical Examination HEENT: PERRLA + ocassional rattle Cardiovascular: RRR, no significant murmur Gastrointestinal: soft, non-tender, positive bowel sounds Musculoskeletal: no edema Dx/Plan (1) Acute bronchitis Code(s): J20.9 - ACUTE BRONCHITIS, UNSPECIFIED Status: Acute (2) CAD (coronary artery disease) Code(s): I25.10 - ATHSCL HEART DISEASE OF [place] CORONARY ARTERY W/O ANG PCTRS Status: Acute (3) HTN (hypertension) Code(s): I10 - ESSENTIAL (PRIMARY) HYPERTENSION Status: Acute (4) Hyponatremia Code(s): E87.1 - HYPO-OSMOLALITY AND HYPONATREMIA Status: Acute Comment: improving with NS and salt tabs (5) h/o Throat cancer Status: Acute - Plan * ? Rattling in throat and hoarseness since his endoscopy- will consult ENT to evaluate * Will repeat a chest Xray today * HTN- blood pressure is stable * Hyponatremia- will re-check sodium in the AM * Will convert to bolus feeds * Hopefully home soon, if there is no significant pathology on CXR, or with ENT.
--- NOTE | 2017-07-19 15:12 | PRG ---
DATE OF SERVICE: 07/19/2017 SUBJECTIVE: The patient denies any abdominal pain. He is presently being taught to use his PEG tube . OBJECTIVE: VITAL SIGNS: Temperature 98.2, pulse 81, respiratory rate 16, blood pressure 167/89. CHEST: Clear. CARDIOVASCULAR: Regular rate and rhythm. ABDOMEN: PEG site looks good. The PEG bumper is at 7 cm and this was tightened. There is no erythe ma or exudate in the area of the PEG. ASSESSMENT: 1. Oropharyngeal dysphagia. 2. Status post PEG placement. RECOMMENDATIONS: 1. Continue tube feedings. 2. Patient to call or come to the office if he has any PEG related problems. 3. We will sign off.
[2017-07-19] MEDS ORDERED: Atorvastatin Calcium 40 MG TAB PER TUBE SCH (21:00)
[2017-07-20] MEDS: Levothyroxine Sodium 100 MCG TAB PER TUBE SCH (05:45)
[2017-07-20] MEDS: Piperacillin/Tazobactam 3.375 GM in Sodium Chloride 0.9% 100 ML IVPB SCH ×2 (05:45→13:03)
[2017-07-20 05:58] LABS: BUN (Urea Nitrogen) 17 mg/dL (8.4-25.7); Calc. Creatinine Clearance 82 mL/min (70-130); Calcium 8.9 mg/dL (7.8-10.44); Estimated GFR-MDRD Greater than 90
[2017-07-20 06:37] LABS: Anion Gap 14 mmol/L (10-20); Carbon Dioxide 30 mmol/L (23-31); Chloride 98 mmol/L (98-107)
[2017-07-20] MEDS: Mometasone/Formoterol 120 PUFF INHALER INH SCH (06:52)
[2017-07-20] MEDS: Famotidine 20 MG TAB PER TUBE SCH (09:03)
[2017-07-20] MEDS: guaiFENesin ER 600 MG TAB PER TUBE SCH (09:04)
[2017-07-20] MEDS: Sodium Chloride 1 GM TAB PER TUBE SCH ×2 (09:04→17:38)
[2017-07-20] MEDS: predniSONE 20 MG TAB PER TUBE SCH (09:05)
[2017-07-20] MEDS: Cefdinir 300 MG CAP PER TUBE SCH (09:05)
[2017-07-20] MEDS: Amlodipine 5 MG TAB PER TUBE SCH (09:05)
[2017-07-20 09:21] VITALS: BP 154/75; TEMP 97.7
[2017-07-20] MEDS: Fluticasone Propionate Nasal Spray 16 gm Bottle NASAL SCH (09:23)
[2017-07-20] MEDS: Heparin 5,000 UNITS/ML VIAL SC SCH ×2 (09:24→17:37)
[2017-07-20] MEDS: Carvedilol 6.25 MG TAB PER TUBE SCH (09:24)
--- NOTE | 2017-07-20 11:47 | RAD ---
CHEST TWO VIEWS: History: Dyspnea. Comparison: 07-12-17 FINDINGS: Heart size appears slightly enlarged. There has been development of small bilateral pleural effusions since the prior exam. There are chronic lung changes. There are atelectatic changes in the lung base s. IMPRESSION: Cardiomegaly with development of small bilateral pleural effusions with bibasilar lung changes which are felt to be on the basis of atelectasis. No overt interstitial edema changes seen. POS: [facility]
--- NOTE | 2017-07-20 14:02 | PDOC.PN ---
- Subjective Encounter Start Date: 07/20/17 Encounter Start Time: 14:00 Mr. Martin was seen today in follow-up of severe dysphagia. He is feeling a bit better, and does not have any complaints. - Objective MAR Reviewed: Yes Vital Signs & Weight: Vital Signs (12 hours) Temp Pulse Resp BP BP Pulse Ox 07/20/17 11:56 71 18 98 07/20/17 09:24 154/75 H 07/20/17 09:05 82 154/75 H 07/20/17 08:00 97.7 F 18 154/75 H 07/20/17 06:52 80 16 95 07/20/17 06:50 80 16 95 Weight Admit Weight 162 lb 7.68 oz Weight 165 lb 1.6 oz Most Recent Monitor Data Heart Rate from ECG 108 NIBP 95/83 NIBP BP-Mean 88 Respiration from ECG 17 SpO2 100 I&O: 07/19/17 07/20/17 07/21/17 06:59 06:59 06:59 Intake Total 1869 2091 330 Balance 1869 2091 330 Result Diagrams: 07/16/17 04:50 07/20/17 05:07 Phys Exam - Physical Examination HEENT: PERRLA Respiratory: no wheezing, no rales, no rhonchi, clear to auscultation bilateral Cardiovascular: RRR, no significant murmur, no rub Gastrointestinal: soft, non-tender, positive bowel sounds Musculoskeletal: no edema Dx/Plan (1) Acute bronchitis Code(s): J20.9 - ACUTE BRONCHITIS, UNSPECIFIED Status: Acute (2) CAD (coronary artery disease) Code(s): I25.10 - ATHSCL HEART DISEASE OF [place] CORONARY ARTERY W/O ANG PCTRS Status: Acute (3) HTN (hypertension) Code(s): I10 - ESSENTIAL (PRIMARY) HYPERTENSION Status: Acute (4) Hyponatremia Code(s): E87.1 - HYPO-OSMOLALITY AND HYPONATREMIA Status: Acute Comment: improving with NS and salt tabs (5) h/o Throat cancer Status: Acute - Plan * Dysphagia- Patient has been converted to bolus tube feeds via PEG tube. He will need Outpatient tube feeding supplies arranged with Case Management, and a consult has been placed. * ENT input appreciated, there were no significant new finding after Laryngoscopy * HTN- blood pressure is stable * Stable for discharge
--- NOTE | 2017-07-20 17:32 | DIS ---
PRIMARY CARE PHYSICIAN: Dr. Kayode Beasley. DATE OF ADMISSION: 07/12/2017 DATE OF DISCHARGE: 07/20/2017 DISCHARGE DISPOSITION: Home. PRIMARY DISCHARGE DIAGNOSES: 1. Acute bronchitis, resolved. 2. Dysphagia, status post anterior cervical diskectomy. 3. Hypertension. 4. Hyperlipidemia. 5. Gastroesophageal reflux disease. 6. History of throat cancer. 7. 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 8. Hyponatremia secondary to hydrochlorothiazide. DISCHARGE MEDICATIONS: Include Omnicef 600 mg per tube daily for 5 days, Protonix 40 mg daily, lisin opril 40 mg at bedtime, levothyroxine 100 mcg daily, Plavix 75 mg daily, vitamin D3 of 2000 units colt ly, carvedilol 6.25 mg twice a day, atorvastatin 80 mg at bedtime, aspirin 81 mg daily, acetaminophen /diphenhydramine daily. Hydrochlorothiazide was discontinued due to hyponatremia. PROCEDURES DONE DURING ADMISSION: The patient had an echocardiogram showing an ejection fraction of 65%-70%. There was some E/A flow reversal noted and this was suggestive of diastolic dysfunction. T here was moderate aortic stenosis. The patient had a CT angiogram of the chest showing some dilatati on of the ascending thoracic aorta. There was no evidence of pulmonary embolism. There was bilatera l atelectasis. CODE STATUS: Full code. ALLERGIES: No known drug allergies. HOSPITAL COURSE: Mr. Martin is a pleasant 81-year-old gentleman who presented to the emergency room with complaints of congestion, cough, and shortness of breath. He was also found to be hyponatremic . The patient was found to have fairly acute bronchitis as the original symptoms for his shortness o f breath. 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 He was taken off of hydrochlorothiazide containing antihypertensive and this actuall y helped improve his symptoms as well. He was also given a fluid restriction of free water as well a s conivaptan at the time of admission with correction of his sodium. At the time of discharge, his s mikel sodium was 138; also during his admission, he had some episodes of severe shortness of breath, c oughing, and dysphagia. He was evaluated by Speech Therapy and was found that he was at extremely hi gh risk of aspiration and had severe delay in his pharyngeal phase and including penetration and aspi ration. He was made completely n.p.o. and Gastroenterology was consulted. It was felt he would bene fit from a PEG tube placement as the dysphagia was likely to persist for at least 3-6 months before i mproving. Some of the dysphagia was also as a result of the recent anterior cervical diskectomy and congestion with radiation changes in his larynx from previous throat cancer. The changes from the becerril rgery are likely to improve and hopefully after several months, the PEG tube could potentially be rev ersed. Arrangements were made for him to receive outpatient feedings with Jevity 1.2 of 8 cans daily , and once these arrangements are complete, the patient can be discharged home and to follow up with his primary care physician, Dr. Beasley in 1-2 weeks and also with ENT, Dr. Serna is already sche duled and also with GI as instructed.
--- NOTE | 2017-07-20 19:21 | PRG ---
DATE OF SERVICE: 07/20/2017 Mr. Martin this morning appears to be doing rather well. From a neurosurgical standpoint, he is exc ellent. Unfortunately, he still struggles with significant dysphagia and as such, a PEG tube placed. He has already been performing tube feeds on his own and seems to have mastered this. He is ready to get home. He did have some concerns over rattling or tightness in his throat and ENT apparently w as re-consulted. I did have a conversation with Dr. Yaniv Beckford this morning and he states that fr om his perspective, the patient is safe to be discharged home and should expect to experience signifi cant dysphagia troubles likely for a few more months to come. I certainly do agree with this given t he level of scarring that we saw intraoperatively. Then this was discussed with the patient both bef ore and after surgery. He seems to be in good spirits overall as does his and I feel comfortabl e with him being discharged home at any given time whenever the primary team feels comfortable. Chance Fernandez PA-C, dictating for Rk Call M.D.
== END 2017-07-20 17:50 | disposition home or self-care (01) | DRG 202 ==
LOC: SCSER 00:34 → CCU 02:01 → 2NO 07-13 08:56 → T4-B 07-15 18:22
PROVIDERS: ADMIT Internal Medicine; ATTEND Internal Medicine
PROC: 0DH63UZ Insertion of Feeding Device into Stomach, Percutaneous Approach (ICD-10-PCS; principal; 2017-07-18)
DX: J20.9 Acute bronchitis, unspecified (principal); E87.1 Hypo-osmolality and hyponatremia; E44.0 Moderate protein-calorie malnutrition; R13.12 Dysphagia, oropharyngeal phase; I35.0 Nonrheumatic aortic (valve) stenosis; J98.11 Atelectasis; I45.10 Unspecified right bundle-branch block; I10 Essential (primary) hypertension; E78.5 Hyperlipidemia, unspecified; K21.9 Gastro-esophageal reflux disease without esophagitis; I25.10 Atherosclerotic heart disease of native coronary artery without angina pectoris; E03.9 Hypothyroidism, unspecified; S19.81XA Other specified injuries of larynx, initial encounter; Z68.22 Body mass index [BMI] 22.0-22.9, adult; Z85.9 Personal history of malignant neoplasm, unspecified; Z79.82 Long term (current) use of aspirin; Z92.3 Personal history of irradiation; T50.2X5A Adverse effect of carbonic-anhydrase inhibitors, benzothiadiazides and other diuretics, initial encounter; T50.8X5A Adverse effect of diagnostic agents, initial encounter; Y92.238 Other place in hospital as the place of occurrence of the external cause
CPT/HCPCS: 36415; 71010; 71020; 71275; 74230; 80048; 80053; 82533; 82550; 82553; 82570; 83605; 83690; 83880; 83930; 83935; 84300; 84484; 84550; 85007; 85025; 85027; 85379; 87040; 93005; 93306; 94640; 94664; 96365; 96366; A4216; G8978-GP-CJ; G8979-GP-CJ; G8980-GP-CJ; G8996-GN-CM; G8996-GN-CN; G8997-GN-CJ; G8997-GN-CK; J0360; J1644; J1885; J1940; J1956; J2060; J2250; J2405; J2543; J2704; J2920; J7050; J7506; J7620

== ENCOUNTER 2017-08-04 18:04 | Emergency (ER) | payer MEDICARE ==
--- NOTE | 2017-08-04 19:02 | RAD ---
CHEST ONE VIEW 08/04/17 HISTORY: Altered mental status. COMPARISON: Chest two view 07/20/17. FINDINGS: The heart size is enlarged. No pneumothorax. Small effusions are improved or have layered posteriorly. Heart size is enlarged. There appears to be an old right clavicle fracture. IMPRESSION: 1. Interval resolution of the small effusions. 2. Cardiomegaly. POS: [facility]
[2017-08-04 19:03] LABS: #Basophils 0.1 thou/uL (0.0-0.2); #Eosinphils 0.1 thou/uL (0.0-0.7); #Lymphocytes 1.1 thou/uL (1.20-3.40); #Monocytes 0.9 thou/uL (0.11-0.59); #Neutrophils 5.6 thou/uL (1.40-6.50); %Basophils 1.2 % (0.0-1.0); %Eosinophils 0.7 % (0.0-10.0); %Lymphocytes 14.4 % (21.0-51.0); %Monocytes 11.4 % (0.0-10.0); %Neutrophils 72.2 % (42.0-75.0); Hemoglobin 10.8 g/dL (14.0-18.0); Mean Corpuscular HGB CONC 32.3 g/dL (32.0-36.0); Mean Corpuscular Hemoglobin 30.8 pg (27.0-31.0); Mean Corpuscular Volume 95.3 fl (80.0-94.0); Mean Platelet Volume 6.8 fL (7.4-10.4); Platelet Count 236 thou/uL (130-400); RBC Distribution Width 14.2 % (11.5-14.5); Red Blood Cell (RBC) Count 3.49 mill/uL (4.70-6.10); White Blood Cell (WBC) Count 7.7 thou/uL (4.8-10.8)
[2017-08-04 19:20] LABS: ALT (SGPT) 29 U/L (8-55); AST (SGOT) 31 U/L (5-34); Albumin 3.7 g/dL (3.4-4.8); Alkaline Phosphatase 80 U/L (40-150); Anion Gap 14 mmol/L (10-20); BUN (Urea Nitrogen) 36 mg/dL (8.4-25.7); Bilirubin, Total 0.4 mg/dL (0.2-1.2); Calc. Creatinine Clearance 0 mL/min (70-130); Calcium 9.7 mg/dL (7.8-10.44); Carbon Dioxide 34 mmol/L (23-31); Chloride 93 mmol/L (98-107); Estimated GFR-MDRD 74; Globulin 3.3 g/dL (2.4-3.5); Glucose 89 mg/dL (83-110); Potassium 5.8 mmol/L (3.5-5.1); Sodium 135 mmol/L (136-145)
[2017-08-04 19:31] LABS: Bilirubin Negative (Negative); Blood, Urine Negative (Negative); Clarity Slightly Cloudy (Clear); Glucose, Urine (Dipstick) Negative (Negative); Leukocyte Negative (Negative); Nitrite Negative (Negative); Protein, Urine (Dipstick) 30 mg/dL (Neg-Trace); Specific Gravity, Urine 1.015 (1.005-1.030); Urobilinogen 0.2 mg/dL (0.2-1.0)
[2017-08-04 19:39] LABS: RBC/HPF 0-3 HPF (0-3)
[2017-08-04 19:40] LABS: Bacteria/HPF Rare-Few HPF (None Seen); Squamous Epithelial 0-3 HPF (0-3)
[2017-08-04 19:41] LABS: Hyaline Casts/LPF 0-3 HYALINE CAST LPF (0-3 Hyaline)
[2017-08-04 19:44] LABS: Crystals/HPF RARE AMMN BIURATE HPF (Negative)
--- NOTE | 2017-09-09 17:45 | EKG ---
Test Reason : Blood Pressure : / mmHG Vent. Rate : 081 BPM Atrial Rate : 081 BPM P-R Int : 180 ms QRS Dur : 134 ms QT Int : 416 ms P-R-T Axes : 055 -67 075 degrees QTc Int : 483 ms Normal sinus rhythm Possible Left atrial enlargement Right bundle branch block Left anterior fascicular block Bifascicular block Left ventricular hypertrophy with QRS widening Cannot rule out Septal infarct , age undetermined Abnormal ECG No changes from 28-JUL-2017 Confirmed by SALLY JOHNSON ([id number]), state editor RAE SPAULDING ([id number]) on 09/09/2017 5:45:04 PM Referred By: Confirmed By:SALLY JOHNSON
== END 2017-08-04 20:11 | disposition home or self-care (01) ==
LOC: SCSER 18:04
DX: T42.4X1A Poisoning by benzodiazepines, accidental (unintentional), initial encounter (principal); K21.9 Gastro-esophageal reflux disease without esophagitis; I10 Essential (primary) hypertension; E03.9 Hypothyroidism, unspecified; I71.9 Aortic aneurysm of unspecified site, without rupture; Z87.891 Personal history of nicotine dependence; Z79.899 Other long term (current) drug therapy; E78.00 Pure hypercholesterolemia, unspecified
CPT/HCPCS: 71045; 80053; 81003; 81015; 83605; 85025; 93005; J7620

== ENCOUNTER 2017-08-12 13:30 | Emergency (ER) | payer MEDICARE ==
[2017-08-12 14:17] LABS: #Lymphocytes 0.9 thou/uL (1.20-3.40); #Monocytes 0.8 thou/uL (0.11-0.59); #Neutrophils 4.6 thou/uL (1.40-6.50); %Basophils 0.7 % (0.0-1.0); %Eosinophils 0.3 % (0.0-10.0); %Lymphocytes 14.4 % (21.0-51.0); %Monocytes 12.5 % (0.0-10.0); %Neutrophils 72.1 % (42.0-75.0); Hemoglobin 9.1 g/dL (14.0-18.0); Mean Corpuscular HGB CONC 33.3 g/dL (32.0-36.0); Mean Corpuscular Hemoglobin 30.7 pg (27.0-31.0); Mean Corpuscular Volume 92.2 fl (80.0-94.0); Mean Platelet Volume 6.4 fL (7.4-10.4); Platelet Count 183 thou/uL (130-400); RBC Distribution Width 13.4 % (11.5-14.5); Red Blood Cell (RBC) Count 2.97 mill/uL (4.70-6.10); White Blood Cell (WBC) Count 6.3 thou/uL (4.8-10.8)
[2017-08-12 14:29] LABS: Anion Gap 14 mmol/L (10-20); BUN (Urea Nitrogen) 29 mg/dL (8.4-25.7); Calc. Creatinine Clearance 0 mL/min (70-130); Calcium 9.1 mg/dL (7.8-10.44); Carbon Dioxide 32 mmol/L (23-31); Chloride 93 mmol/L (98-107); Estimated GFR-MDRD Greater than 90; Glucose 146 mg/dL (83-110); Potassium 4.6 mmol/L (3.5-5.1); Sodium 134 mmol/L (136-145)
[2017-08-12 14:33] LABS: CKMB 4.2 ng/mL (0-6.6); Troponin I 0.087 ng/mL (< 0.028)
--- NOTE | 2017-08-12 15:21 | RAD ---
UPRIGHT PORTABLE CHEST 1 VIEW: Date: 08/12/17 HISTORY: 81-year-old male with elevated blood pressure. COMPARISON: 08/04/17. FINDINGS: Minimal cardiomegaly. Stable increased linear and interstitial markings and biapical pleural thickeni ng. No confluent pneumonia or overt edema. IMPRESSION: Stable cardiomegaly. Stable chronic lung changes. No pneumonia or other significant acute process. POS: [facility]
[2017-08-12 17:23] LABS: Troponin I 0.083 ng/mL (< 0.028)
== END 2017-08-12 17:51 | disposition short-term general hospital (02) ==
LOC: SCSER 13:30
DX: R79.89 Other specified abnormal findings of blood chemistry (principal); K21.9 Gastro-esophageal reflux disease without esophagitis; I10 Essential (primary) hypertension; I71.9 Aortic aneurysm of unspecified site, without rupture; E03.9 Hypothyroidism, unspecified; E78.00 Pure hypercholesterolemia, unspecified; Z87.891 Personal history of nicotine dependence; Z79.899 Other long term (current) drug therapy
CPT/HCPCS: 71045; 80048; 82553; 84484; 85025; 93005

== ENCOUNTER 2017-08-12 18:09 | Observation (INO) | payer MEDICARE ==
[2017-08-12] MEDS ORDERED: Bisacodyl 5 MG TAB PO PRN (18:37)
[2017-08-12] MEDS ORDERED: Ondansetron ODT 4 MG TAB PO PRN (18:37)
[2017-08-12] MEDS ORDERED: Acetaminophen 325 MG TAB PO PRN (18:37)
[2017-08-12 18:51] VITALS: BMI 23.4
[2017-08-12 19:31] LABS: Troponin I 0.088 ng/mL (< 0.028)
--- NOTE | 2017-08-12 20:08 | HP ---
HISTORY OF PRESENT ILLNESS: Mr. Martin is an 81-year-old man. Earlier today, he started experimenting some palpitations and some generalized weakness. At that time, he was seen by EMS. Hi s blood pressure was noticed to be elevated and his pulse rate was in the 180s. He was transferred t [facility] ER. He was further evaluated and was found to have elevated troponin. He subsided spontaneously. He was transferred to this facility for evaluation and management. About few days ago, patient had some hematuria. At that time, he was seen by his private physician julia kirk he was started on treatment for urinary tract infection with Cipro. At that time, he was also not iced to have low blood pressure and according to the , all his medications were stopped except fo r his levothyroxine and also he was started on Cipro. He was otherwise in his usual state of health until earlier today when this episode happened. PAST MEDICAL HISTORY: Remarkable for hypertension, hyperlipidemia, gastroesophageal reflux disease. He was recently found to have dysphagia and the PEG was placed. PAST SURGICAL HISTORY: He has a history of tonsil cancer, which was treated with radiation in late . In 2009, he was found to have head and neck cancer, which was treated with surgery and more rece ntly he had C-spine diskectomy. ALLERGIES: He does not have any known allergy. SOCIAL HISTORY: He quit smoking many years ago. He drinks socially. No history of drug abuse. FAMILY HISTORY: Reviewed and is not contributory. REVIEW OF SYSTEMS: Constitutional: No weakness, no fever. HEENT: No headache, no ocular pain, no sore throat, no rhinorrhea, no fever, no epistaxis. Neck: Some neck pain associated with his recent surgery. Cardiovascular: Some palpitations earlier. He denies shortness of breath. Denies chest pain. Pulmonary: No coughing. Gastrointestinal: No nausea, no vomiting, no diarrhea, no abdominal pain. He does have dysphagia for which he had a PEG placed. Genitourinary: Admits to dysuria. He is currently being treated for UTI. Endocrinology: No heat or cold intolerance. No polyuria, poly dipsia or polyphagia. Hematologic: No abnormal bleeding, no ecchymosis. Lymphatic: No palpable ly mphadenopathy. No painful lymphadenopathy. Skin: No rash, no itching. Musculoskeletal: Occasiona l arthralgias, some neck pain as mentioned earlier. Allergies: No hayfever. Neurological: No seiz ure. Psychiatric: No anxiety, no depression. PHYSICAL EXAMINATION: GENERAL: At the current time, he is alert, oriented, in no acute distress. VITAL SIGNS: His latest vital signs show a temperature of 98.8, pulse rate 82, respiratory rate 16 a nd blood pressure 169/96. HEENT: Head is normocephalic and atraumatic. Eyes: Both his pupils are equal and reactive. Ears a nd nose are normal. Oral mucosa is moist. He has some redness in the pharyngeal area. NECK: Supple. There is no distention of the jugular vein. No lymphadenopathy felt. Thyroid gland not palpable. There is no carotid bruit. CHEST: Symmetrical with regular S1 and S2. LUNGS: Clear. ABDOMEN: Soft. Bowel sounds heard. We could not appreciate any organomegaly. There is no focal ar ea of tenderness. EXTREMITIES: Limbs show +1 edema. NEUROLOGIC: Neurologically, he moves all extremities. LABORATORY DATA: His chemistry and lytes, troponin, CBC and diff were reviewed. They were obtained from [place]. ASSESSMENT AND PLAN: This is a man who was found to have supraventricular tachycardia donovan ier, which resolved spontaneously. At that same time, he was also noticed to have an elevated blood pressure. He was found to have an elevated troponin and was transferred to this facility. He is als o known to have a history of hypertension, hyperlipidemia, gastroesophageal reflux disease, dysphagia , status post percutaneous endoscopic gastrostomy, history of tonsil cancer treated with radiation, h istory of head and neck cancer treated with surgery and more recently cervical diskectomy. At this [facility], he is being admitted for evaluation of his elevated troponin. A Cardiology consult was called. He will be treated for unstable angina.
[2017-08-12] MEDS ORDERED: Atorvastatin Calcium 40 MG TAB PO SCH (21:00)
[2017-08-12] MEDS: Cipro 250 MG TAB PO SCH (21:43)
[2017-08-12] MEDS ORDERED: Diabetic Tussin 200 MG/10 ML UDCUP PO PRN (23:13)
[2017-08-13 00:44] LABS: Troponin I 0.078 ng/mL (< 0.028)
[2017-08-13] MEDS: Metoprolol Tartrate 25 MG TAB PO SCH ×2 (01:09→09:48)
[2017-08-13] MEDS: Famotidine/PF 20 mg/2ml Vial SLOW IVP SCH ×2 (01:09→09:49)
[2017-08-13 04:45] LABS: #Basophils 0.1 thou/uL (0.0-0.2); #Lymphocytes 1.2 thou/uL (1.20-3.40); #Monocytes 0.9 thou/uL (0.11-0.59); #Neutrophils 4.4 thou/uL (1.40-6.50); %Basophils 0.9 % (0.0-1.0); %Eosinophils 0.5 % (0.0-10.0); %Lymphocytes 18.7 % (21.0-51.0); %Monocytes 13.4 % (0.0-10.0); %Neutrophils 66.5 % (42.0-75.0); Anion Gap 9 mmol/L (10-20); BUN (Urea Nitrogen) 25 mg/dL (8.4-25.7); Calc. Creatinine Clearance 88 mL/min (70-130); Calcium 9.2 mg/dL (7.8-10.44); Carbon Dioxide 33 mmol/L (23-31); Chloride 93 mmol/L (98-107); Estimated GFR-MDRD Greater than 90; Glucose 80 mg/dL (83-110); Hemoglobin 10.7 g/dL (14.0-18.0); Mean Corpuscular HGB CONC 33.9 g/dL (32.0-36.0); Mean Corpuscular Hemoglobin 33.2 pg (27.0-31.0); Mean Corpuscular Volume 97.9 fl (80.0-94.0); Mean Platelet Volume 7.1 fL (7.4-10.4); Platelet Count 205 thou/uL (130-400); Potassium 4.9 mmol/L (3.5-5.1); RBC Distribution Width 13.8 % (11.5-14.5); Red Blood Cell (RBC) Count 3.23 mill/uL (4.70-6.10); Sodium 130 mmol/L (136-145); White Blood Cell (WBC) Count 6.6 thou/uL (4.8-10.8)
[2017-08-13] MEDS ORDERED: Diabetic Tussin 200 MG/10 ML UDCUP PER TUBE PRN ×5 (05:23→05:30)
[2017-08-13] MEDS: Cipro 250 MG TAB PO SCH (05:43)
[2017-08-13] MEDS ORDERED: Levothyroxine Sodium 100 MCG TAB PO SCH ×2 (06:00)
[2017-08-13] MEDS ORDERED: Mometasone/Formoterol 120 PUFF INHALER INH SCH (06:30)
[2017-08-13] MEDS ORDERED: Enoxaparin Sodium 40 MG/0.4 ML SYRINGE SC SCH (09:00)
[2017-08-13] MEDS ORDERED: Aspirin 81 mg Enteric Coated Tablet PO SCH (09:00)
[2017-08-13] MEDS ORDERED: Clopidogrel Bisulfate 75 MG TAB PO SCH (09:00)
--- NOTE | 2017-08-13 11:34 | PDOC.PN ---
- Subjective Encounter Start Date: 08/13/17 Encounter Start Time: 11:20 No complaint. - Objective Resuscitation Status: Resuscitation Status FULL:Full Resuscitation Vital Signs & Weight: Vital Signs (12 hours) Temp Pulse Resp BP BP Pulse Ox 08/13/17 08:00 98.4 F 65 18 08/13/17 07:58 97 08/13/17 07:56 65 18 97 08/13/17 07:52 65 16 97 08/13/17 07:29 98.4 F 77 18 166/85 H 95 08/13/17 04:00 98.8 F 91 22 H 140/82 95 08/13/17 02:34 88 18 94 L 08/13/17 01:29 92 20 155/80 H 95 Weight Weight 173 lb I&O: 08/12/17 08/13/17 08/14/17 06:59 06:59 06:59 Intake Total 410 Balance 410 Result Diagrams: 08/13/17 04:07 08/13/17 04:07 Phys Exam - Physical Examination Constitutional: NAD HEENT: sclera anicteric Neck: no JVD Respiratory: clear to auscultation bilateral Cardiovascular: RRR Gastrointestinal: soft Musculoskeletal: no edema Neurological: moves all 4 limbs Psychiatric: normal affect, A&O x 3 Dx/Plan (1) SVT (supraventricular tachycardia) Code(s): I47.1 - SUPRAVENTRICULAR TACHYCARDIA Status: Resolved Plan: Had elevated troponin. Cardiology to see. (2) CAD (coronary artery disease) Code(s): I25.10 - ATHSCL HEART DISEASE OF [place] CORONARY ARTERY W/O ANG PCTRS Status: Acute Comment: As mentioned above. (3) HTN (hypertension) Code(s): I10 - ESSENTIAL (PRIMARY) HYPERTENSION Status: Acute Comment: BP satisfactory. (4) h/o Throat cancer Status: Acute - Plan -: As per cardiology. * .
--- NOTE | 2017-08-13 12:09 | DIS ---
DATE OF ADMISSION: 08/12/2017 DATE OF DISCHARGE: 08/13/2017 ADMITTING DIAGNOSES: Supraventricular tachycardia and elevated troponin. OTHER DIAGNOSES: Hypertension, hyperlipidemia, gastroesophageal reflux disease, dysphagia, history o f tonsillar cancer, history of head and neck cancer. FRAME CHANGER: Dr. Henderson. PROCEDURE: None. COURSE OF HOSPITALIZATION: Uncomplicated. The patient is clinically stable at this time being disch arged home. DISCHARGE MEDICATIONS: Please see discharge medication reconciliation sheet. He is to follow up wit h his primary care physician. For today's physical examination, please refer to patient's medical record progress note section.
--- NOTE | 2017-08-13 13:17 | CON ---
DATE OF CONSULTATION: 08/13/2017 REASON FOR CONSULTATION: Elevated troponin, hypertension and tachycardia. HISTORY OF PRESENT ILLNESS: Mr. Martin is a pleasant 81-year-old gentleman who is a patient of Dr. Segundo Pérez. He has scheduled appointment this week. He states he was in his normal state of health when he was watching TV. He was dosed off and awoke quickly. He states he had flushing and headach e. His was present. She took his blood pressure. His blood pressure was 220 systolic. She al so states his heart rate was in the 180s. This is based on a blood pressure cuff. No tracing presen t. He then states that it improved after several minutes. They proceeded to the emergency room wher e he was found to be hypertensive. His troponin was in the indeterminate range. He states he has had a stress study performed in Dr. Pérez's office over the last 6 months that was felt to be within normal limits. He has no previous history of underlying coronary disease. He does have a history of right bundle branch block. PAST MEDICAL HISTORY: Hyperlipidemia, acid reflux, head and neck cancer, right bundle branch block, hypertension, hematuria and C-spine diskectomy. ALLERGIES: None. SOCIAL HISTORY: Quit all tobacco products several years ago. REVIEW OF SYSTEMS: Ten-point review of systems is reviewed and as above, otherwise negative. PHYSICAL EXAMINATION: GENERAL: Patient is a pleasant male who is in no acute distress. The patient appears his stated age . VITAL SIGNS: Blood pressure 150/73, pulse 78, temperature 98.5. NEUROLOGIC: The patient is alert and oriented times 3 with no focal neurologic deficits. HEENT: Sclerae without icterus. Mouth has moist mucous membranes with normal pallor. NECK: No JVD. Carotid upstroke brisk. No bruits bilaterally. LUNGS: Clear to auscultation with unlabored respirations. BACK: No scoliosis or kyphosis. CARDIAC: Regular rate and rhythm with normal S1 and S2. No S3 or S4 noted. No significant rubs, mu rmurs, thrills, or gallops noted throughout the precordium. PMI is not displaced. There is no octaviano ternal heave. ABDOMEN: Soft, nontender, nondistended. No peritoneal signs present. No hepatosplenomegaly. No abnormal striae. EXTREMITIES: 2+ femoral and 2+ dorsalis pedis pulses. No cyanosis, clubbing, or edema. SKIN: No gross abnormalities. PERTINENT LABORATORY DATA: Hemoglobin 10.7, peak troponin 0.088. IMPRESSION: 1. Elevated troponin. 2. Tachycardia. 3. Hypertension. RECOMMENDATIONS: Mr. Martin's increased troponin is likely related to hypertensive urgency. His bl ood pressure now has improved. He sees Dr. Beasley due to hypotension in the office. Last week stoppe d all of his blood pressure medications. This likely precipitated his hypertensive urgency. At this point, I recommend restarting lisinopril 10 mg in addition to Coreg at 3.125 p.o. b.i.d. He may hav e had an episode of SVT, but is unknown. I have recommended he follow up with Dr. Pérez as schedule d this week and obtain a 3-week event recorder to assess for significant dysrhythmias. He had a rece nt stress study performed per his history within the last 6 months that was negative for ischemia. I would be okay to observe today and did discharge this afternoon from my standpoint.
[2017-08-13 16:42] VITALS: BP 163/83; TEMP 98.4
== END 2017-08-13 17:26 | disposition home or self-care (01) ==
LOC: INTOOBSV 18:09 → 2SW 18:09
PROVIDERS: ADMIT Hospitalist; ATTEND Hospitalist
DX: I47.1 Supraventricular tachycardia (principal); R79.89 Other specified abnormal findings of blood chemistry; I10 Essential (primary) hypertension; E78.5 Hyperlipidemia, unspecified; K21.9 Gastro-esophageal reflux disease without esophagitis; I45.10 Unspecified right bundle-branch block; Z98.890 Other specified postprocedural states; Z87.891 Personal history of nicotine dependence; Z85.818 Personal history of malignant neoplasm of other sites of lip, oral cavity, and pharynx; Z85.89 Personal history of malignant neoplasm of other organs and systems
CPT/HCPCS: 71045; 80048 ×2; 82274; 82553; 84484 ×2; 85025 ×2; 93005; 94640 ×3; 96374; 99284; G0378; 36415; J1650; J7620; S0028